=== PATIENT | female | born 1955 | race Caucasian/White ===

== ENCOUNTER 2022-12-09 06:27 | Outpatient (OUT) | payer MEDICARE, SELFPAY ==
[2022-12-09 07:44] LABS: Basophils Absolute Auto 0.1 10^3/uL (0.0-0.1); Basophils Percent Auto 1.3 % (0.2-2.0); Eosinophils Absolute Auto 0.5 10^3/uL (0.0-0.7); Eosinophils Percent Auto 6.8 % (0.9-7.0); Hematocrit 38.9 % (36.0-48.0); Hemoglobin 12.9 g/dL (12.0-16.0); Immature Granulocytes Abs Auto 0.02 10^3/uL (0.00-0.03); Immature Granulocytes Pct Auto 0.3 % (0.0-0.5); Lymphocytes Percent Auto 28.5 % (20.5-60.0); Mean Corpuscular HGB Conc 33.2 g/dL (29.9-35.2); Mean Corpuscular Hemoglobin 30.6 pg (26.7-34.0); Mean Corpuscular Volume 92.4 fL (81.0-99.0); Mean Platelet Volume 10.8 fL (9.5-13.5); Monocytes Absolute Auto 0.5 10^3/uL (0.3-0.8); Monocytes Percent Auto 6.5 % (1.7-12.0); Neutrophils Percent Auto 56.6 % (43.0-75.0); Platelet Count 309 10^3/uL (150-450); Red Blood Count 4.21 10^6/uL (4.20-5.40); Red Cell Distribution Width 12.4 % (11.0-15.0); White Blood Count 7.1 10^3/uL (4.0-11.0)
[2022-12-09 10:24] LABS: Estimated Average Glucose 111 mg/dL; Glycohemoglobin A1C 5.5 % (4.5-6.2)
[2022-12-09 11:05] LABS: Alanine Aminotransferase 36 U/L (14-59); Albumin Globulin Ratio 1.1; Albumin Level 3.8 g/dL (3.4-5.0); Alkaline Phosphatase 59 U/L (46-116); Anion Gap 15.8; Aspartate Amino Transferase 26 U/L (15-37); BUN Creatinine Ratio 27.8; Bilirubin Total 0.5 mg/dL (0.2-1.0); Calcium 9.9 mg/dL (8.5-10.1); Carbon Dioxide 22.3 mmol/L (21.0-32.0); Chloride 106 mmol/L (98-107); Chol HDL Ratio 2.3; Cholesterol 168 mg/dL (<=200); Estimated GFR (African America >60 (>=60); Estimated GFR (Non-African Ame >60 (>=60); Free T3 2.95 pg/mL (2.18-3.98); Globulin 3.4 g/dL; Glucose 127 mg/dL (74-106); HDL Cholesterol 72 mg/dL (40-60); Potassium 4.1 mmol/L (3.5-5.1); Sodium 140 mmol/L (136-145); Thyroid Stimulating Hormone 2.027 uIU/mL (0.358-3.740); Total Protein 7.2 g/dL (6.4-8.2); Triglycerides 69 mg/dL (<=150); VLDL CHOLESTEROL 13.8 mg/dL
[2022-12-09 16:15] LABS: Occult Blood Negative
== END 2022-12-09 06:28 ==
LOC: LAB 06:36
PROVIDERS: PCP Family Medicine; Visit Provider Family Medicine
DX: Z00.00 Encounter for general adult medical examination without abnormal findings (principal); D64.9 Anemia, unspecified; R53.83 Other fatigue; R73.09 Other abnormal glucose; I10 Essential (primary) hypertension; E78.5 Hyperlipidemia, unspecified; Z12.12 Encounter for screening for malignant neoplasm of rectum
CPT/HCPCS: 36415; 80053; 80061; 83036; 83540; 84436; 84443; 84481; 85025; G0328

== ENCOUNTER 2023-01-10 13:13 | Outpatient (OUT) | payer MEDICARE, SELFPAY ==
--- NOTE | 2023-01-10 13:22 | MM_ITS ---
Patient: ISRRAEL LAZCANO Exam Date: 01/10/2023 : 1955 Gender:F Ordering : DR Shaggy Cheng . Admission #: [id number] Family : Order #: [id number] CLICK HERE TO VIEW EXAM RADIOLOGY REPORT PROCEDURE: MM TOMOSYNTHESIS SCREENING BI COMPARISON: MG MAMM SCREEN 3D [place] CAD, 11/24/2021. MG MAMM SCREEN 3D [place] CAD, 09/21/2020. MG MAMM SCREEN B[place] W CAD, 07/12/2019. MG MAMM B[place]NA[place] SCRN W CAD DIG, 12/04/2013. INDICATIONS: Screening Calculator Name NCI Breast Cancer Risk Assessment Tool 5 Year Breast Cancer Risk 5.00% Lifetime Breast Cancer Risk 15.50% Personal Breast Cancer No Personal Ovarian Cancer No Treatments None Family Cancers Mother with breast cancer at age 80; Sister with leioma, brain cancer at age 33. LOCATION: [facility] BREAST COMPOSITION: Scattered areas fibroglandular density. FINDINGS: DIAGNOSTIC CATEGORY 2--BENIGN FINDING: RIGHT BREAST: No significant suspicious finding. Scattered benign-appearing calcifications are present. No significant change has occurred. LEFT BREAST: No significant suspicious finding. Scattered benign-appearing calcifications are present. No significant change has occurred. RECOMMENDATIONS: ROUTINE MAMMOGRAM AND CLINICAL EVALUATION IN 12 MONTHS. PLEASE NOTE: A NORMAL MAMMOGRAM DOES NOT EXCLUDE THE POSSIBILITY OF BREAST CANCER. A CLINICALLY SUSPICIOUS PALPABLE LUMP SHOULD BE BIOPSIED. Dictated by: John Coffey M.D. on 01/11/2023 at 12:54 Approved by: John Coffey M.D. on 01/11/2023 at 12:59
== END 2023-01-10 13:14 | disposition home or self-care (01) ==
PROVIDERS: PCP Family Medicine; Visit Provider Family Medicine
DX: Z12.31 Encounter for screening mammogram for malignant neoplasm of breast (principal); Z80.3 Family history of malignant neoplasm of breast; Z80.8 Family history of malignant neoplasm of other organs or systems
CPT/HCPCS: 77063; 77067

== ENCOUNTER 2023-03-04 08:20 | Emergency (ER) | payer MEDICARE, SELFPAY ==
--- NOTE | 2023-03-04 08:28 | XR_ITS ---
The [address] [address] Patient Name: ISRRAEL LAZCANO MRN: [id number] date: 1955 Sex: F Assigned Patient Location: ED.MAIN Current Patient Location: ED.MAIN Accession/Order Number: [id number] Exam Date: 03/04/2023 08:40 Report Date: 03/04/2023 09:20 At the request of: ELIZABETH SESAY Procedure: XR wrist RT min 3V PROCEDURE: XR wrist RT min 3V COMPARISON: None. HISTORY: injury FINDINGS: BONES:Acute complex intra-articular distal radius fracture.r there is dorsal lateral displacement of the distal fracture fragments up to 8 mm. No dislocation. SOFT TISSUES:Negative. No visible soft tissue swelling. EFFUSION:None visible. OTHER: Negative. XR/XR wrist RT min 3V IMPRESSION: Complex intra-articular distal radius fracture with dorsal lateral displacement of the distal fracture fragments Electronically authenticated by: ELISSA ROSE Date: 03/04/2023 09:20
[2023-03-04 08:29] VITALS: BP 128/70; PULSE 76; RESP 18; TEMP 36.7; O2SAT 97; BMI 26.5
--- NOTE | 2023-03-04 08:56 | ED_ITS ---
HPI - Extremity Injury (Upper) General Chief Complaint: Extremity Injury, Upper Stated Complaint: FELL, THINKS R HAND/WRIST IS BROKEN Time Seen by Provider: 03/04/23 08:24 Mode of arrival: walk-in History of Present Illness HPI narrative: tripped while walking her dog, fell and injured the right wrist Related Data Previous Rx's Medication Instructions Recorded oxycodone-acetaminophen 5 mg-325 1 tab PO Q6H PRN pain #14 tabs 03/04/23 mg tablet (Percocet) Allergies Allergy/AdvReac Type Severity Reaction Status Date / Time No Known Drug Allergies Allergy Verified 03/04/23 08:28 Exam Narrative Exam Narrative: Nurses note and vital signs reviewed and patient is not hypoxic. afebrile General: The patient appears well and in no apparent distress. Patient is resting comfortably on cart. GCS = 15. Skin: Warm, dry, no pallor noted. Head: Normocephalic, atraumatic Eyes: PERRLA, EOMI Cardiovascular: normal peripheral perfusion Respiratory: Patient is in no distress, no accessory muscle use Musculoskeletal: tenderness and swelling at the distal right radius. Pain with right wrist ROM Neurological: A&O x4, normal equal spout positioner strength, normal finger to nose, normal speech, normal coordination, normal motor, normal sensory. Psychiatric: Cooperative Constitutional Vital Signs, click to edit/add: Last Vital Signs Temp 98.0 F 03/04/23 08:29 Pulse 76 03/04/23 08:29 Resp 18 03/04/23 08:29 BP 128/70 03/04/23 08:29 Pulse Ox 97 03/04/23 08:29 O2 Del Method Room Air 03/04/23 08:29 Course Vital Signs Vital signs: Vital Signs Temperature 98.0 F 03/04/23 08:29 Pulse Rate 76 03/04/23 08:29 Respiratory Rate 18 03/04/23 08:29 Blood Pressure 128/70 03/04/23 08:29 Pulse Oximetry 97 03/04/23 08:29 Oxygen Delivery Method Room Air 03/04/23 08:29 Temperature 98.0 F 03/04/23 08:29 Pulse Rate 76 03/04/23 08:29 Respiratory Rate 18 03/04/23 08:29 Blood Pressure 128/70 03/04/23 08:29 Pulse Oximetry 97 03/04/23 08:29 Oxygen Delivery Method Room Air 03/04/23 08:29 MDM - Extremity Injury (Upper) MDM Narrative Medical decision making narrative: patient with distal right radius fracture. ED nurse applied a velcro adjustable splint to the right hand and wrist. Patient instructed to see Dr Abdi for follow up Imaging Data xr wrist: My impression: closed distal right radius fracture Radiologist's impression: Patient Name: ISRRAEL LAZCANO MRN: [facility]:[id number] date: 1955 Sex: F Assigned Patient Location: ED.MAIN Current Patient Location: ED.MAIN Accession/Order Number: [id number] Exam Date: 03/04/2023 08:40 Report Date: 03/04/2023 09:20 At the request of: ELIZABETH SESAY Procedure: XR wrist RT min 3V PROCEDURE: XR wrist RT min 3V COMPARISON: None. HISTORY: injury FINDINGS: BONES:Acute complex intra-articular distal radius fracture.r there is dorsal lateral displacement of the distal fracture fragments up to 8 mm. No dislocation. SOFT TISSUES:Negative. No visible soft tissue swelling. EFFUSION:None visible. OTHER: Negative. IMPRESSION: Complex intra-articular distal radius fracture with dorsal lateral displacement of the distal fracture fragments Electronically authenticated by: ELISSA ROSE Date: 03/04/2023 09:20 Discharge Plan Discharge Chief Complaint: Extremity Injury, Upper Clinical Impression: Distal radius fracture, right Patient Disposition: Home, Self-Care Time of Disposition Decision: 08:55 Prescriptions / Home Meds: New oxycodone-acetaminophen [Percocet] 5-325 mg tablet 1 tab PO Q6H PRN (Reason: pain) Qty: 14 0RF Instructions: Wrist Fracture in Adults (ED) Stand Alone Forms: Portal Instructions Referrals: John Abdi MD [Physician] - 03/07/23 Discharge Date/Time: 03/04/23 09:32
== END 2023-03-04 09:32 | disposition home or self-care (01) ==
PROVIDERS: Emergency Provider Emergency Medicine; PCP Family Medicine
DX: S52.501A Unspecified fracture of the lower end of right radius, initial encounter for closed fracture (principal); W01.0XXA Fall on same level from slipping, tripping and stumbling without subsequent striking against object, initial encounter; Y93.K1 Activity, walking an animal
CPT/HCPCS: 73110; 99283

== ENCOUNTER 2023-03-09 10:01 | Outpatient (OUT) | payer MEDICARE, SELFPAY ==
--- NOTE | 2023-03-09 10:24 | ECG_ITS ---
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
[2023-03-09 11:28] LABS: Basophils Absolute Auto 0.1 10^3/uL (0.0-0.1); Basophils Percent Auto 0.9 % (0.2-2.0); Eosinophils Absolute Auto 0.3 10^3/uL (0.0-0.7); Eosinophils Percent Auto 2.6 % (0.9-7.0); Hematocrit 36.8 % (36.0-48.0); Hemoglobin 12.1 g/dL (12.0-16.0); Immature Granulocytes Abs Auto 0.04 10^3/uL (0.00-0.03); Immature Granulocytes Pct Auto 0.4 % (0.0-0.5); Lymphocytes Absolute Auto 1.8 10^3/uL (1.2-3.8); Lymphocytes Percent Auto 19.1 % (20.5-60.0); Mean Corpuscular HGB Conc 32.9 g/dL (29.9-35.2); Mean Corpuscular Hemoglobin 30.8 pg (26.7-34.0); Mean Corpuscular Volume 93.6 fL (81.0-99.0); Mean Platelet Volume 10.3 fL (9.5-13.5); Monocytes Absolute Auto 0.5 10^3/uL (0.3-0.8); Monocytes Percent Auto 5.5 % (1.7-12.0); Neutrophils Absolute Auto 6.8 10^3/uL (1.4-6.5); Neutrophils Percent Auto 71.5 % (43.0-75.0); Platelet Count 345 10^3/uL (150-450); Red Blood Count 3.93 10^6/uL (4.20-5.40); Red Cell Distribution Width 11.9 % (11.0-15.0); White Blood Count 9.5 10^3/uL (4.0-11.0)
[2023-03-09 11:52] LABS: Anion Gap 10.9; BUN Creatinine Ratio 18.5; Calcium 9.4 mg/dL (8.5-10.1); Carbon Dioxide 26.2 mmol/L (21.0-32.0); Chloride 108 mmol/L (98-107); Estimated GFR (African America >60 (>=60); Estimated GFR (Non-African Ame >60 (>=60); Glucose 92 mg/dL (74-106); Potassium 4.1 mmol/L (3.5-5.1); Sodium 141 mmol/L (136-145)
[2023-03-09 12:08] LABS: Alanine Aminotransferase 23 U/L (14-59); Albumin Globulin Ratio 1.1; Albumin Level 3.6 g/dL (3.4-5.0); Alkaline Phosphatase 56 U/L (46-116); Aspartate Amino Transferase 17 U/L (15-37); Bilirubin Direct 0.1 mg/dL (0.0-0.2); Bilirubin Total 0.4 mg/dL (0.2-1.0); Globulin 3.4 g/dL
[2023-03-09 12:09] LABS: INR 0.97; Partial Thromboplastin Time 29.2 sec (22.3-36.2); Prothrombin Time 10.3 sec (9.0-11.6)
== END 2023-03-09 10:02 | disposition home or self-care (01) ==
PROVIDERS: PCP Family Medicine; Visit Provider Orthopaedic Surgery
DX: Z01.810 Encounter for preprocedural cardiovascular examination (principal); Z01.812 Encounter for preprocedural laboratory examination; S52.501A Unspecified fracture of the lower end of right radius, initial encounter for closed fracture
CPT/HCPCS: 36415; 80048; 80076; 85025; 85610; 85730; 93005

== ENCOUNTER 2023-03-13 11:26 | Day surgery (SDC) | payer MEDICARE, SELFPAY ==
[2023-03-09 10:47] VITALS: BP 141/81; PULSE 61; RESP 20; TEMP 36.4; O2SAT 96; BMI 26.0
[2023-03-13] VITALS (9 sets, daily range): BP systolic 135–154; BP diastolic 71–87; PULSE 65–102; RESP 15–20; TEMP 36.4; O2SAT 87–97; BMI 25.0
--- NOTE | 2023-03-13 | XR_ITS ---
[address] [address] Patient Name: ISRRAEL LAZCANO MRN: [id number] date: 1955 Sex: F Assigned Patient Location: [facility] Current Patient Location: Accession/Order Number: [id number] Exam Date: 03/13/2023 15:20 Report Date: 03/14/2023 07:14 At the request of: MAKI HOOKS Procedure: XR wrist RT 2V EXAM: XR wrist RT 2V HISTORY: RT WRIST ORIF COMPARISON: 03/04/2023 TECHNIQUE: 3-D images. 104 seconds of fluoroscopy FINDINGS: Open reduction internal fixation of a complex distal radius fracture utilizing a volar plate and multiple screws. Near anatomic alignment. XR/XR wrist RT 2V IMPRESSION: Open reduction internal fixation of the distal radius fracture Electronically authenticated by: ELISSA ROSE Date: 03/14/2023 07:14
--- NOTE | 2023-03-13 12:48 | PC.NURSE ---
[address] Time out performed with Dr. Gallardo, the patient and Myself. Checked against the Wrist band and stickers as well as patient. Dr. Gallardo administered 2mg of versed following Time out. Patient positioned per anesthesia. Right arm was marked prior to initiation of procedure. Using ultrasound guidance Dr. Gallardo initiated nerve block in right shoulder. Patient tolerated procedure well. Patient sitting in an upright high fowlers position, awake, alert and oriented x4. Patient stated no further needs at this time.
[2023-03-13] MEDS: LACTATED RINGER'S SOLUTION 1,000 ML 50 ML IV ×2 (14:37→15:40)
[2023-03-13] MEDS: CEFAZOLIN SODIUM/DEXTROSE,ISO 2 GM/50 ML PIGGYBACK IV (14:38)
--- NOTE | 2023-03-13 16:50 | P.ORPRC_ITS ---
Procedure Note Date of procedure: 03/13/23 Pre-op diagnosis: Right distal radius fracture Post-op diagnosis: other (Three-part intra-articular right distal radius fracture) Procedure: Procedure: Open reduction internal fixation right distal radius fracture After informed consent was obtained the patient brought to the operating room where general anesthetic was administered. Preoperatively a regional block was placed. A well-padded proximal arm tourniquet was placed on the right arm was prepped and draped in the usual sterile fashion. The arm was elevated, exsanguinated, and the tourniquet was inflated to 225 mmHg. A 6 cm incision was made overlying the flexor carpi radialis tendon at the distal radius fracture. Blunt dissection was carried down through soft tissue. Flexor carpi radialis was retracted ulnarly along with the FPL muscle and tendon. The underlying pronator quadratus was identified and incised in an L- shaped fashion off of the bone. The fracture was identified and found to be significantly displaced posteriorly and one fracture going into the joint. Using traction and manipulation reduction was performed. The Synthes by column distal radius 3-hole plate was next placed and provisionally held into place with K wires. X-rays revealed a reduced distal radius fracture and appropriate implant placement. The plate was first fixed to the shaft fragment through the oblong drill hole in the standard fashion of drilling the hole, measuring and then placement of a 2.7 bicortical nonlocking screw. While holding the reduction 6 unicortical 2.4 mm locking screws were placed at the distal fracture fragments. An additional 2 bicortical 2.[address] through the shaft fragment. Final x-rays in multiple planes revealed a reduced distal radius fracture with appropriate implant placement and lengths. Wound was irrigated. Pronator quadratus was repaired with an 0 Vicryl suture. Skin was closed in standard fashion with absorbable suture. Steri-Strips and a sterile dressing was placed. A volar fiberglass splint was placed. Tourniquet was deflated. Patient was awakened and brought to the recovery room in stable condition. There were no intraoperative or immediate postoperative complications.
== END 2023-03-13 17:55 | disposition home or self-care (01) ==
PROVIDERS: PCP Family Medicine; Visit Provider Orthopaedic Surgery
PROC: (CPT 25609; principal; 2023-03-13 12:50)
DX: S52.571A Other intraarticular fracture of lower end of right radius, initial encounter for closed fracture (principal); W19.XXXA Unspecified fall, initial encounter
CPT/HCPCS: 25609; 36415; 64417; 73100; 76000; 76942; C1713; J2704

== ENCOUNTER 2023-03-27 07:58 | Outpatient (OUT) | payer MEDICARE, SELFPAY ==
--- NOTE | 2023-03-27 08:00 | XR_ITS ---
The [address] [address] Patient Name: ISRRAEL LAZCANO MRN: [id number] date: 1955 Sex: F Assigned Patient Location: [facility] Current Patient Location: [facility] Accession/Order Number: [id number] Exam Date: 03/27/2023 08:05 Report Date: 03/27/2023 08:57 At the request of: MAKI HOOKS Procedure: XR wrist RT min 3V EXAM: XR wrist RT min 3V HISTORY: Closed Fracture Of Distal End Of Right Radius S52.591A COMPARISON: Fluoroscopic exam 03/13/2023 TECHNIQUE: 3 views of the right wrist FINDINGS: Partial interval healing of the intra-articular distal radial fracture in unchanged alignment; orthopedic fixation hardware appears intact. No acute fracture identified. No dislocation. Soft tissue swelling about the wrist XR/XR wrist RT min 3V IMPRESSION: 1. Partial interval healing of the distal radial fracture in unchanged alignment; orthopedic fixation hardware appears intact. Electronically authenticated by: JOESPH KING Date: 03/27/2023 08:57
== END 2023-03-27 07:59 | disposition home or self-care (01) ==
LOC: RAD 07:58
PROVIDERS: PCP Family Medicine; Visit Provider Orthopaedic Surgery
DX: S52.591A Other fractures of lower end of right radius, initial encounter for closed fracture (principal)
CPT/HCPCS: 73110

== ENCOUNTER 2023-03-29 07:55 | Outpatient (RCR) | payer MEDICARE, SELFPAY | END 2023-05-19 15:11 | disposition home or self-care (01) | LOC: OT 07:55 | PROVIDERS: PCP Family Medicine; Visit Provider Orthopaedic Surgery | DX: S52.591D Other fractures of lower end of right radius, subsequent encounter for closed fracture with routine healing (principal) | CPT/HCPCS: 97022; 97110; 97140; 97165 ==

== ENCOUNTER 2023-04-24 08:14 | Outpatient (OUT) | payer MEDICARE, SELFPAY ==
--- NOTE | 2023-04-24 | XR_ITS ---
The [address] [address] Patient Name: ISRRAEL LAZCANO MRN: [id number] date: 1955 Sex: F Assigned Patient Location: [facility] Current Patient Location: [facility] Accession/Order Number: [id number] Exam Date: 04/24/2023 08:45 Report Date: 04/24/2023 12:51 At the request of: MAKI HOOKS Procedure: XR wrist RT min 3V PROCEDURE: XR wrist RT min 3V HISTORY: Closed fracture of distal end of right radius COMPARISON: XR wrist right 03/27/2023 FINDINGS: BONES:Mechanical repair of distal radius fracture via anterior plate and screws; no appreciable hardware fracture or loosening. Mild callus formation along margins of prior fracture. Mild degenerative changes of the wrists joints; no acute fracture. SOFT TISSUES:Soft tissue swelling surrounding the wrist. EFFUSION:None visible. OTHER: Negative. XR/XR wrist RT min 3V IMPRESSION: 1. Surgical repair of prior distal left radius fracture without evidence of hardware failure or change in alignment. 2. Soft tissue swelling. Electronically authenticated by: MAKI MENDOZA Date: 04/24/2023 12:51
== END 2023-04-24 08:15 | disposition home or self-care (01) ==
LOC: RAD 08:14
PROVIDERS: PCP Family Medicine; Visit Provider Orthopaedic Surgery
DX: S52.591A Other fractures of lower end of right radius, initial encounter for closed fracture (principal)
CPT/HCPCS: 73110

== ENCOUNTER 2024-02-09 06:23 | Outpatient (OUT) | payer MEDICARE, SELFPAY ==
--- OUTSIDE RECORDS SUMMARY | 2024-02-09 06:27 | XMS_ITS | CCD ---
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 Name Role Phone ED LIUJassonROGER Jacqueline Referring Unavailable Unavailable Primary Care Provider Unavailizaiah e GAIL, DR DAMIAN Primary Care Unavailable HOY, DR DAMIAN Admitting Unavailable HOY, DR DAMIAN Attending Unavailable HOY, DR DAMIAN Consulting Unavailable HOY, DR DAMIAN Consulting Unavailable HOY, DR DAMIAN Primary Care Unavailable HOY, DR DAMIAN Admitting Unavailable HOY, DR DAMIAN Attending Unavailable HOY, DR DAMIAN Consulting Unavailable HOY, DR DAMIAN Primary Care Unavailable HOY, DR DAMIAN Admitting Unavailable HOY, DR DAMIAN Attending Unavailable HOY, DR DAMIAN Consulting Unavailable HOY, DR DAMIAN Primary Care Unavailable HOY, DR DAMIAN Admitting Unavailable HOY, DR DAMIAN Attending Unavailable HOY, DR DAMIAN Consulting Unavailable HOY, DR DAMIAN Primary Care Unavailable HOY, DR DAMIAN Admitting Unavailable HOY, DR DAMIAN Attending Unavailable WEST, DR ELISSA Jameson Consulting Unavailable Problems Active Problems Problem Classification Problem Date Documented Da te Episodic/Chronic Acute bronchitis (1 source) Acute bronchitis, unspecified; Translations: [ACUTE BRONCHITIS UNSPECIFIED] Onset: 06-30-2022 Episodic Chronic obstructive pulmonary disease and bronchiectasis (5 sources) Chronic obstructive pulmonary disease, unspecified; Translations: [COPD UNSPECIFIED] Onset: 11-19-2021 Chronic Disorders of lipid metabolism (1 source) Hyperlipidemia, unspecified; Translations: [HYPERLIPIDEMIA UNSPECIFIED] Onset: 11-26-2021 Chronic Essential hypertension (1 source) Essential (primary) hypertension; Translations: [ESSENTIAL PRIMARY HYPERTENSION] Onset: 11-26-2021 Chronic Unclassified (3 sources) CONTACT W/AND (SUSP) EXPOS COVID-19; Translations: [CONTACT W/AND (SUSP) EXPOS COVID-19] Onset: 06-30-2022 Unclassified (2 sources) COUGH, UNSPECIFIED; Translations: [COUGH, UNSPECIFIED] Onset: 03-30-2022 Viral infection (1 source) COVID-19; Translations: [COVID-19] Onset: 03-30-2022 Past or Other Problems Problem Classification Problem Date Documented Da te Episodic/Chronic Deficiency and other anemia (1 source) Anemia, unspecified; Translations: [ANEMIA UNSPECIFIED] Onset: 11-26-2021 Episodic Diabetes mellitus without complication (1 source) Other abnormal glucose; Translations: [OTHER ABNORMAL GLUCOSE] Onset: 11-26-2021 Episodic Hepatitis (1 source) Unspecified viral hepatitis C without hepatic coma; Translations: [UNS VIRAL HEPATITIS C W/O HEP COMA] Onset: 11-26-2021 Episodic Other screening for suspected conditions (not mental disorders or infectious disease) (3 sources) Viral screening status; Translations: [Encounter for screening mammogram for malignant neoplasm of breast] Onset: 11-26-2021 Episodic Residual codes; unclassified (1 source) Family history of malignant neoplasm of breast; Translations: [FAMILY HX MALIG NEOPLASM OF BREAST] Onset: 11-26-2021 Episodic Residual codes; unclassified (1 source) Family history of malignant neoplasm of other organs or systems; Translations: [FAM HX MALIG NEOPLASM OTH ORGN/SYS] Onset: 11-26-2021 Episodic Unclassified (1 source) CONTACT W/AND (SUSP) EXPOS COVID-19; Translations: [CONTACT W/AND (SUSP) EXPOS COVID-19] Onset: 06-23-2022 Unclassified (1 source) COUGH, UNSPECIFIED; Translations: [COUGH, UNSPECIFIED] Onset: 03-28-2022 Results Test Name Value Interpretation Reference Range Facility Covid-19 PCR (CVDTBH)on 06-03 SARS-CoV-2 (COVID-19) RNA ROSALINA+probe Ql (Unsp spec) Not detected Normal NOT DETECTED [facility] [place] Comment on above: Result Comment: This test is not yet approved or cleared by the [place] FDA. When there are no FDA-approved or cleared tests available, and other criteria are met, FDA can make tests available under an emergency access mechanism called an Emergency Use Authorization (EUA). The EUA for this test is supported by the [place] of Health and Human Service's (HHS's) declaration that circumstances exist to justify the emergency use of in vitro diagnostics for the detection and/or diagnosis of the virus that causes COVID-19. This EUA will remain in effect (meaning this test can be used) for the duration of the COVID-19 declaration justifying emergency of IVDs, unless it is terminated or revoked by FDA (after which the test may no longer be used). When diagnostic testing is negative, the possibility of a false negative should be considered in the context of a patient's recent exposures and the presence of clinical signs and symptoms consistent with SARS-CoV-2. Performed By: #### C VDTB #### [facility] [place] Laboratory [address] [place] [address] Dr. Perico Victor INFLUENZA A AND B [facility] 06-23 [facility] SEE BELOW Normal [facility] Comment on above: Result Comment: Nega tive for Flu A protein angiten. Infection due to Flu A cannot be ruled out. Flu A angiten in the sample may be below the detection limit of the test. Performed By: #### I NFLUAB #### [facility] [place] Laboratory [address] [place] [address] Dr. Perico Victor [facility] SEE BELOW Normal [facility] Comment on above: Result Comment: Nega tive for Flu B protein antigen. Infection due to Flu B cannot be ruled out. Flu B antigen in the sample may be below the detection limit of the test. Performed By: #### I NFLUAB #### [facility] [place] Laboratory [address] [place] [address] Dr. Perico Victor INFLUENZA A AG Negative Normal NEGATIVE SEE COMMENT [facility] Comment on above: Performed By: #### I NFLUAB #### [facility] [place] Laboratory [address] [place] [address] Dr. Perico Victor INFLUENZA B AG Negative Normal NEGATIVE SEE COMMENT [facility] Comment on above: Performed By: #### I NFLUAB #### [facility] [place] Laboratory [address] [place] [address] Dr. Perico Victor INTERNAL CONTROLS Within Normal Limits Normal Wi thin Normal Limits [facility] [place] Comment on above: Performed By: #### I NFLUAB #### [facility] [place] Laboratory [address] [place] [address] Dr. Perico Victor Covid-19 PCR (CVDTB)on 03-04 SARS-CoV-2 (COVID-19) RNA ROSALINA+probe Ql (Unsp spec) Detected Critically abnormal NOT DETECTED [facility] [place] Comment on above: Result Comment: This test is not yet approved or cleared by the [place] FDA. When there are no FDA-approved or cleared tests available, and other criteria are met, FDA can make tests available under an emergency access mechanism called an Emergency Use Authorization (EUA). The EUA for this test is supported by the [place] of Health and Human Service's (HHS's) declaration that circumstances exist to justify the emergency use of in vitro diagnostics for the detection and/or diagnosis of the virus that causes COVID-19. This EUA will remain in effect (meaning this test can be used) for the duration of the COVID-19 declaration justifying emergency of IVDs, unless it is terminated or revoked by FDA (after which the test may no longer be used). Performed By: #### C VDTB #### [facility] [place] Laboratory [address] [address] [address] Perico Victor Covid-19 PCR (CVDTB)on 02-02 SARS-CoV-2 (COVID-19) RNA ROSALINA+probe Ql (Unsp spec) Not detected Normal NOT DETECTED [facility] [place] Comment on above: Result Comment: This test is not yet approved or cleared by the [place] FDA. When there are no FDA-approved or cleared tests available, and other criteria are met, FDA can make tests available under an emergency access mechanism called an Emergency Use Authorization (EUA). The EUA for this test is supported by the [place] of Health and Human Service's (HHS's) declaration that circumstances exist to justify the emergency use of in vitro diagnostics for the detection and/or diagnosis of the virus that causes COVID-19. This EUA will remain in effect (meaning this test can be used) for the duration of the COVID-19 declaration justifying emergency of IVDs, unless it is terminated or revoked by FDA (after which the test may no longer be used). When diagnostic testing is negative, the possibility of a false negative should be considered in the context of a patient's recent exposures and the presence of clinical signs and symptoms consistent with SARS-CoV-2. Performed By: #### C VDTBH #### [facility] [place] Laboratory [address] [place] [address] Dr. Perico Victor T4 LABCORPon 11-26-2021 T4 [Mass/Vol] 9.2 ug/dL Normal 4.5-12.[address] [facility] Comment on above: Performed By: #### T 4LC #### [facility] [place] Laboratory [address] [place] [address] Dr. Perico Victor INSULINon 11-25-2021 Insulin 14.4 uIU/mL Normal 2.6-24.9 [facility] [place] Comment on above: Performed By: #### I NSULIN #### [facility] [place] Laboratory [address] [place] [address] Dr. Perico Victor CBC AUTO DIFFon 11-24-2021 BASO # 0.1 103/ul Normal 0.0-0.1 [facility] Comment on above: Performed By: #### C BC #### [facility] [place] Laboratory [address] [place] [address] Dr. Perico Victor Basophils/100 WBC (Bld) 1.2 % Normal 0.2-2.0 [facility] [place] Comment on above: Performed By: #### C BC #### [facility] [place] [facility] [address] [place] [address] Dr. Perico Victor EO # 0.5 103/ul Normal 0.0-0.7 [facility] [place] Comment on above: Performed By: #### C BC #### [facility] [place] [facility] [address] [place] [address] Dr. Perico Victor Eosinophils/100 WBC (Bld) 5.8 % Normal 0.9-7.0 [facility] [place] Comment on above: Performed By: #### C BC #### [facility] [place] [facility] [address] [place] [address] Dr. Perico Victor Erythrocyte distribution width (RBC) [Ratio] 12.3 % Normal 11.0-15.0 [facility] Comment on above: Performed By: #### C BC #### [facility] [place] [facility] [address] [place] [address] Dr. Perico Victor Hematocrit (Bld) [Volume fraction] 41.7 % Normal 36.0-48.0 [facility] Comment on above: Performed By: #### C BC #### [facility] [place] [facility] [address] [place] [address] Dr. Perico Victor Hemoglobin (Bld) [Mass/Vol] 13.6 g/dL Normal 12.0-16.0 [facility] Comment on above: Performed By: #### C BC #### [facility] [place] [facility] [address] [place] [address] Dr. Perico Victor IG # 0.03 10e3/ul Normal 0.00-0.03 [facility] Comment on above: Performed By: #### C BC #### [facility] [place] [facility] [address] [place] [address] Dr. Perico Victor IG % 0.3 % Normal 0.0-0.5 [facility] Comment on above: Performed By: #### C BC #### [facility] [place] [facility] [address] [place] [address] Dr. Perico Victor LYMPH # 2.8 103/ul Normal 1.2-3.8 [facility] Comment on above: Performed By: #### C BC #### [facility] [place] [facility] [address] [place] [address] Dr. Perico Victor Lymphocytes/100 WBC (Bld) 30.5 % Normal 20.5-60.0 [facility] Comment on above: Performed By: #### C BC #### [facility] [place] [facility] [address] [place] [address] Dr. Perico Victor MANUAL DIFF REQ NO Normal [facility] Comment on above: Performed By: #### C BC #### [facility] [place] [facility] [address] [place] [address] Dr. Perico Victor MCH (RBC) [Entitic mass] 30.6 pg Normal 26.7-34.0 [facility] Comment on above: Performed By: #### C BC #### [facility] [place] [facility] [address] [place] [address] Dr. Perico Victor MCHC (RBC) [Mass/Vol] 32.6 g/dL Normal 29.9-35.2 [facility] [place] Comment on above: Performed By: #### C BC #### [facility] [place] [facility] [address] [place] [address] Dr. Perico Victor MCV (RBC) [Entitic vol] 93.7 fL Normal 81.0-99.0 [facility] Comment on above: Performed By: #### C BC #### [facility] [place] [facility] [address] [place] [address] Dr. Perico Victor MONO # 0.6 103/ul Normal 0.3-0.8 [facility] [place] Comment on above: Performed By: #### C BC #### [facility] [place] [facility] [address] [place] [address] Dr. Perico Victor Monocytes/100 WBC (Bld) 6.6 % Normal 1.7-12.0 [facility] Comment on above: Performed By: #### C BC #### [facility] [place] [facility] [address] [place] [address] Dr. Perico Victor NEUT # 5.0 103/ul Normal 1.4-6.5 [facility] Comment on above: Performed By: #### C BC #### [facility] [place] [facility] [address] [place] [address] Dr. Perico Victor Neutrophils/100 WBC (Bld) 55.6 % Normal 43.0-75.0 [facility] [place] Comment on above: Performed By: #### C BC #### [facility] [place] [facility] [address] [place] [address] Dr. Perico Victor Platelet mean volume (Bld) [Entitic vol] 11.2 fL Normal 9.5-13.5 [facility] [place] Comment on above: Performed By: #### C BC #### [facility] [place] [facility] [address] [place] [address] Dr. Perico Victor PLT 324 103/ul Normal 150-450 [facility] [place] Comment on above: Performed By: #### C BC #### [facility] [place] [facility] [address] [place] [address] Dr. Perico Victor RBC 4.45 106/ul Normal 4.20-5.40 [facility] Comment on above: Performed By: #### C BC #### [facility] [place] [facility] [address] [place] [address] Dr. Perico Victor WBC 9.0 103/ul Normal 4.0-11.0 [facility] Comment on above: Performed By: #### C BC #### [facility] [place] [facility] [address] [place] [address] Dr. Perico Victor FREE THYROXINE INDEX T7on FTI 2.94 Normal 1.30-4.50 [facility] Comment on above: Performed By: #### A 1C #### [facility] [place] [facility] [address] [place] [address] Dr. Perico Victor T3U 32.0 % Normal 30.0-39.0 [facility] Comment on above: Performed By: #### A 1C #### [facility] [place] [facility] [address] [place] [address] Dr. Perico Victor T4 [Mass/Vol] 9.20 ug/dL Normal 4.80-13.90 [facility] Comment on above: Performed By: #### A 1C #### [facility] [place] [facility] [address] [place] [address] Dr. Perico Victor GLYCOHEMOGLOBIN A1Con 2021 ADA RECOMMENDATION SEE BELOW Normal [facility] Comment on above: Result Comment: ADA RECOMMENDED LIMIT 4.0 - 6.0 ADA THERAPEUTIC TARGET < 7.0 ACTION SUGGESTED > 7.0 Performed By: #### A 1C #### [facility] [place] [facility] [address] [place] [address] Dr. Perico Victor Glucose [Mass/Vol] 114 mg/dL Normal [facility] Comment on above: Performed By: #### A 1C #### [facility] [facility] [address] [place] [address] Dr. Perico Victor HbA1c (Bld) [Mass fraction] 5.6 % Normal 4.5-6.2 [facility] Comment on above: Performed By: #### A 1C #### [facility] [place] [facility] [address] [place] [address] Dr. Perico Victor IRONon 11-24-2021 Iron [Mass/Vol] 75.0 ug/dL Normal 50.0-170.0 [facility] Comment on above: Performed By: #### I SULEIMAN #### [facility] [place] [facility] [address] [address] [address] Perico Victor LIPID PROFILEon 11-24-2021 CHOL-HDL RATIO NORM SEE BELOW Normal [facility] Comment on above: Result Comment: 3.3 - 4.4 LOW RISK 4.4 - 7.1 AVERAGE RISK 7.1 - 11.0 MODERATE RISK >11.0 HIGH RISK Performed By: #### A 1C #### [facility] [place] [facility] [address] [address] [address] Perico Victor Cholesterol [Mass/Vol] 171 mg/dL Normal <=200 [facility] Comment on above: Performed By: #### A 1C #### [facility] [place] [facility] [address] [address] [address] Perico Victor Cholesterol in HDL [Mass/Vol] 68 mg/dL Critically high 40-60 [facility] Comment on above: Performed By: #### A 1C #### [facility] [place] [facility] [address] [address] [address] Perico Victor Cholesterol in LDL [Mass/Vol] 89.6 mg/dL Normal [facility] Comment on above: Performed By: #### A 1C #### [facility] [place] [facility] [address] [address] [address] Perico Victor Cholesterol.total/Ch olesterol in HDL [Mass ratio] 2.5 {ratio} Normal [facility] Comment on above: Performed By: #### A 1C #### [facility] [place] [facility] [address] [address] [address] Perico Victor HDL NORMAL > or = 60 mg/dl - LOW CARDIOVASCULAR RISK <40 mg/dl - HIGH CARDIOVASCULAR RISK Normal [facility] Comment on above: Performed By: #### A 1C #### [facility] [place] [facility] [address] [address] [address] Perico Victor LDL CALC NORMAL SEE BELOW Normal [facility] Comment on above: Result Comment: <100 mg/dl OPTIMAL 100 - 129 mg/dl NEAR OR ABOVE OPTIMAL 130 - 159 mg/dl BORDERLINE HIGH 160 - 189 mg/dl HIGH >190 mg/dl VERY HIGH Performed By: #### A 1C #### [facility] [facility] [address] [place] [address] Dr. Perico Victor Triglyceride [Mass/Vol] 67 mg/dL Normal <=150 [facility] Comment on above: Performed By: #### A 1C #### [facility] [place] [facility] [address] [address] [address] Perico Victor VLDL CALC 13.4 mg/dL Normal [facility] Comment on above: Performed By: #### A 1C #### [facility] [place] [facility] [address] [place] [address] Dr. Perico Victor MG MAMM SCREEN 3D BERNADETTE CADon 11-24-2021 MG MAMM SCREEN 3D BERNADETTE CAD Patient: ISRRAEL LAZCANO Exam Date: 11/24/2021 : 1955 Gender:F Ordering : DR RICKIE REYNOLDS . Admission #: [id number] Family : Order #: [id number] CLICK HERE TO VIEW EXAM RADIOLOGY REPORT PROCEDURE: MAMMOGRAM SCREENING 3D BILATERAL CAD COMPARISON: MG MAMM SCREEN BERNADETTE W CAD, 07/12/2019. MG MAMM SCREEN 3D BERNADETTE CAD, 09/21/2020. INDICATIONS: Screening mammography Calculator Name NCI Breast Cancer Risk Assessment Tool 5 Year Breast Cancer Risk 5.00% Lifetime Breast Cancer Risk 16.20% Personal Breast Cancer No Personal Ovarian Cancer No Treatments None Family Cancers Mother with breast cancer at age 80; Sister with leioma, brain cancer at age 33. LOCATION: [facility] [place] BREAST COMPOSITION: Scattered areas fibroglandular density. FINDINGS: DIAGNOSTIC CATEGORY 2--BENIGN FINDING. NO CHANGE FROM COMPARISON. Scattered benign-appearing calcifications are present. Scattered benign-appearing lymph nodes are present. RIGHT BREAST: No significant suspicious finding. LEFT BREAST: No significant suspicious finding. RECOMMENDATIONS: ROUTINE MAMMOGRAM AND CLINICAL EVALUATION IN 12 MONTHS. PLEASE NOTE: A NORMAL MAMMOGRAM DOES NOT EXCLUDE THE POSSIBILITY OF BREAST CANCER. A CLINICALLY SUSPICIOUS PALPABLE LUMP SHOULD BE BIOPSIED. Dictated by: Elissa Thomason MD on 11/24/2021 at 09:00 Approved by: Elissa Thomason MD on 11/24/2021 at 09:15 Normal [facility] OCC BLD IMMUNO SCREENon 11-01 OCCULT BLOOD Negative Normal NEGATIVE [facility] Comment on above: Performed By: #### O BSCRN #### [facility] [place] [facility] [address] [place] [address] Dr. Perico Victor PROF 14(COMP METB)on 022 Albumin [Mass/Vol] 4.2 g/dL Normal 3.4-5.0 [facility] Comment on above: Performed By: #### A 1C #### [facility] [place] [facility] [address] [place] [address] Dr. Perico Victor Albumin/Globulin [Mass ratio] 1.1 {ratio} Normal [facility] Comment on above: Performed By: #### A 1C #### [facility] [place] [facility] [address] [place] [address] Dr. Perico Victor ALP [Catalytic activity/Vol] 65 U/L Normal 46-116 [facility] Comment on above: Performed By: #### A 1C #### [facility] [place] [facility] [address] [place] [address] Dr. Perico Victor ALT [Catalytic activity/Vol] 30 U/L Normal 14-59 [facility] Comment on above: Performed By: #### A 1C #### [facility] [facility] [address] [place] [address] Dr. Perico Victor Anion gap [Moles/Vol] 12.2 mmol/L Normal [facility] Comment on above: Performed By: #### A 1C #### [facility] [facility] [address] [place] [address] Dr. Perico Victor AST [Catalytic activity/Vol] 17 U/L Normal 15-37 [facility] Comment on above: Performed By: #### A 1C #### [facility] [facility] [address] [place] [address] Dr. Perico Victor Bilirubin [Mass/Vol] 0.6 mg/dL Normal 0.2-1.0 [facility] Comment on above: Performed By: #### A 1C #### [facility] [address] [place] [address] Dr. Perico Victor Calcium [Mass/Vol] 10.1 mg/dL Normal 8.5-10.1 [facility] Comment on above: Performed By: #### A 1C #### [facility] [address] [place] [address] Dr. Perico Victor Chloride [Moles/Vol] 104 mmol/L Normal 98-107 [facility] Comment on above: Performed By: #### A 1C #### [facility] [address] [address] [address] Perico Victor CO2 [Moles/Vol] 27.1 mmol/L Normal 21.0-32.0 [facility] Comment on above: Performed By: #### A 1C #### [facility] [address] [place] [address] Dr. Perico Victor Creatinine [Mass/Vol] 0.85 mg/dL Normal 0.55-1.02 [facility] Comment on above: Performed By: #### A 1C #### [facility] [address] [place] [address] Dr. Perico Victor EGFR-AF [place] >60 Normal >=60 [facility] Comment on above: Performed By: #### A 1C #### [facility] [address] [place] [address] Dr. Perico Victor EGFR-NON AF [place] >60 Normal >=60 [facility] Comment on above: Performed By: #### A 1C #### [facility] [address] [place] [address] Dr. Perico Victor Globulin (S) [Mass/Vol] 3.7 g/dL Normal [facility] Comment on above: Performed By: #### A 1C #### [facility] [address] [place] [address] Dr. Perico Victor Glucose [Mass/Vol] 110 mg/dL Critically high 74-106 [facility] Comment on above: Performed By: #### A 1C #### [facility] [address] [place] [address] Dr. Perico Victor Potassium [Moles/Vol] 4.3 mmol/L Normal 3.5-5.1 [facility] Comment on above: Performed By: #### A 1C #### [facility] [address] [place] [address] Dr. Perico Victor Protein [Mass/Vol] 7.9 g/dL Normal 6.4-8.2 [facility] Comment on above: Performed By: #### A 1C #### [facility] [address] [place] [address] Dr. Perico Victor Sodium [Moles/Vol] 139 mmol/L Normal 136-145 [facility] Comment on above: Performed By: #### A 1C #### [facility] [address] [place] [address] Dr. Perico Victor Urea nitrogen [Mass/Vol] 23.0 mg/dL Critically high 7.0-18.0 [facility] Comment on above: Performed By: #### A 1C #### [facility] [address] [place] [address] Dr. Perico Victor Urea nitrogen/Creatinine [Mass ratio] 27.1 mg/mg Normal [facility] Comment on above: Performed By: #### A 1C #### [facility] [address] [place] [address] Dr. Perico Victor TSHon 11-24-2021 TSH 2.646 uIU/mL Normal 0.358-3.[address] [facility] Comment on above: Performed By: #### A 1C #### [facility] [address] [place] [address] Dr. Perico Victor TSH RANGE SEE BELOW Normal [facility] Comment on above: Result Comment: <0.3 4 UIU/ml HYPERTHYROID 0.34-5.60 UIU/ml EUTHYROID >5.60 UIU/ml HYPOTHYROID Performed By: #### A 1C #### [facility] [address] [place] [address] Dr. Perico Victor [facility]31 SARS-CoV-2 (COVID-19) RNA ROSALINA+probe Ql (Unsp spec) Not detected Normal NOT DETECTED [facility] Comment on above: Result Comment: When diagnostic testing is negative, the possibility of a false negative should be considered in the context of a patient's recent exposures and the presence of clinical signs and symptoms consistent with SARS-CoV-2. This test is not yet approved or cleared by the [place] FDA. When there are no FDA-approved or cleared tests available, and other criteria are met, FDA can make tests available under an emergency access mechanism called an Emergency Use Authorization (EUA). The EUA for this test is supported by the [place] of Health and Human Service's declaration that circumstances exist to justify the emergency use of in vitro diagnostics for the detection and/or diagnosis of the virus that causes COVID-19. This EUA will remain in effect for the duration of the COVID-19 declaration justifying emergency of IVDs, unless it is terminated or revoked by the FDA (after which the test may no longer be used). Performed By: #### A 1C #### [facility] [address] [place] [address] Dr. Perico Victor [id number] 01-16-2020 SARS-CoV-2 Not Detected Normal Not Detected [facility] Comment on above: Result Comment: (NOT E) Testing was performed using the Aptima SARS-CoV-2 assay. This test was developed and its performance characteristics determined by [employer]. This test has not been FDA cleared or approved. This test has been authorized by FDA under an Emergency Use Authorization (EUA). This test is only authorized for the duration of time the declaration that circumstances exist justifying the authorization of the emergency use of in vitro diagnostic tests for detection of SARS-CoV-2 virus and/or diagnosis of COVID-19 infection under section 564(b)(1) of the Act, 21 U.S.C. 360bbb-3(b)(1), unless the authorization is terminated or revoked sooner. When diagnostic testing is negative, the possibility of a false negative result should be considered in the context of a patient's recent exposures and the presence of clinical signs and symptoms consistent with COVID-19. An individual without symptoms of COVID-19 and who is not shedding SARS-CoV-2 virus would expect to have a negative (not detected) result in this assay. Performed At: =[address], [place] [id number] Debbi Salgado MD Ph:[phone] Performed By: #### A COV #### [facility] [address] [id number] Religion Professor: Loyd Best MD Encounters Encounter Date Encounter Type Care Provider Facility Start: 06-23-2022 End: 06-23-[address] RICKIE REYNOLDS Facility:[facility] Start: 03-28-2022 End: 03-28-[address] RICKIE REYNOLDS Facility:[facility] Start: 03-02-2022 End: 03-02-[address] RICKIE REYNOLDS Facility:[facility] Start: 11-24-2021 End: 11-25-[address] RICKIE REYNOLDS Facility:[facility] Start: 11-16-2021 End: 11-16-[address] RICKIE REYNOLDS Facility:[facility] Start: 01-09-2020 End: 01-10-2020 Patient encounter procedure GLORIA LIU [facility] Start: 01-09-2020 End: 01-09-2020 Subsequent hospital visit by physician [facility] Comment on above: Special screening ex amination for viral disease Procedures Date Procedure Procedure Detail Performing Clinician Start: 01-09-2020 COVID-19 AMBULATORY REYMUNDO LIU Plan of Treatment Date Care Activity Detail Author Start: 03-03-2020 Influenza vaccination Flu vaccine (# 1) [place], [place] End: 01-09-2020 Covid-19 Ambulatory Covid-19 Ambulatory Lab Routine Special screening examination for viral disease 1 Occurrences starting 01/09/2020 until 01/09/2020 [place], [place] Comment on above: 1 Occurrences starti ng 01/09/2020 until 01/09/2020 Covid-19 Ambulatory Covid-19 Amb ulatory Lab Routine Special screening examination for viral disease 01/09/2020 7:34 PM EDT [place], [place] Payers Date Payer Category Payer Medicare [id number] 1955 Unknown [id number] 2.16.84 [id number] 1955 Unknown [id number] 2.16.84 [id number] 1955 Unknown [id number] 2.16.84 [id number] 1955 Unknown [id number] 2.16.84 [id number] 1955 Unknown [id number] 2.16.84 [id number] Social History Date Type Detail Facility Tobacco smoking status NHIS Unknown if ev er [facility] [place] Sex Assigned At Not on file [facility] [place] Summary Purpose Family History No Family History Records FoundNo Family History Records Found Advance Directives No Advanced Directives Records FoundDocuments on File Type Date 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 This clinical summary was aggregated from multiple sources. Caution should be exercised in using it in the provision of clinical care. This summary normalizes information from multiple sources, and as a consequence, information in this document may materially change the coding, format and clinical context of patient data. In addition, data may be omitted in some cases. CLINICAL DECISIONS SHOULD BE BASED ON THE PRIMARY CLINICAL RECORDS. [employer] provides no warranty or guarantee of the accuracy or completeness of information in this document.
[2024-02-09 06:38] LABS: Basophils Absolute Auto 0.1 10^3/uL (0.0-0.1); Basophils Percent Auto 1.5 % (0.2-2.0); Eosinophils Absolute Auto 0.4 10^3/uL (0.0-0.7); Eosinophils Percent Auto 5.3 % (0.9-7.0); Hematocrit 39.9 % (36.0-48.0); Hemoglobin 13.3 g/dL (12.0-16.0); Immature Granulocytes Abs Auto 0.02 10^3/uL (0.00-0.03); Immature Granulocytes Pct Auto 0.3 % (0.0-0.5); Lymphocytes Absolute Auto 2.1 10^3/uL (1.2-3.8); Mean Corpuscular HGB Conc 33.3 g/dL (29.9-35.2); Mean Corpuscular Hemoglobin 30.6 pg (26.7-34.0); Mean Corpuscular Volume 91.9 fL (81.0-99.0); Mean Platelet Volume 10.6 fL (9.5-13.5); Monocytes Absolute Auto 0.6 10^3/uL (0.3-0.8); Monocytes Percent Auto 8.4 % (1.7-12.0); Neutrophils Absolute Auto 4.2 10^3/uL (1.4-6.5); Neutrophils Percent Auto 56.5 % (43.0-75.0); Platelet Count 269 10^3/uL (150-450); Red Blood Count 4.34 10^6/uL (4.20-5.40); Red Cell Distribution Width 12.2 % (11.0-15.0); White Blood Count 7.5 10^3/uL (4.0-11.0)
[2024-02-09 07:04] LABS: Alanine Aminotransferase 25 U/L (14-59); Albumin Globulin Ratio 1.3; Alkaline Phosphatase 67 U/L (46-116); Anion Gap 12.1; Aspartate Amino Transferase 18 U/L (15-37); BUN Creatinine Ratio 23.5; Bilirubin Total 0.6 mg/dL (0.2-1.0); Calcium 10.2 mg/dL (8.5-10.1); Chloride 104 mmol/L (98-107); Chol HDL Ratio 2.3; Cholesterol 184 mg/dL (<=200); Estimated GFR (African America >60 (>=60); Estimated GFR (Non-African Ame >60 (>=60); Free T3 2.71 pg/mL (2.18-3.98); Globulin 3.2 g/dL; Glucose 105 mg/dL (74-106); HDL Cholesterol 80 mg/dL (40-60); Potassium 4.1 mmol/L (3.5-5.1); Sodium 139 mmol/L (136-145); Thyroid Stimulating Hormone 2.259 uIU/mL (0.358-3.740); Total Protein 7.2 g/dL (6.4-8.2); Triglycerides 66 mg/dL (<=150); VLDL CHOLESTEROL 13.2 mg/dL
[2024-02-09 08:18] LABS: Estimated Average Glucose 111 mg/dL; Glycohemoglobin A1C 5.5 % (4.5-6.2)
[2024-02-09 11:47] LABS: Internal Control Within Normal Limits; Occult Blood Negative
== END 2024-02-09 06:24 | disposition home or self-care (01) ==
PROVIDERS: PCP Family Medicine; Visit Provider Family Medicine
DX: I10 Essential (primary) hypertension (principal); R73.09 Other abnormal glucose; Z12.12 Encounter for screening for malignant neoplasm of rectum; D64.9 Anemia, unspecified
CPT/HCPCS: 36415; 80053; 80061; 83036; 83540; 84436; 84443; 84481; 85025; G0328

== ENCOUNTER 2024-02-13 13:54 | Outpatient (OUT) | payer MEDICARE, SELFPAY ==
--- NOTE | 2024-02-13 13:58 | MM_ITS ---
Patient Name: ISRRAEL LAZCANO MR#: [id number] : 1955 Exam Date: 02/13/2024 Ordering Doctor: DR RICKIE REYNOLDS . RADIOLOGY REPORT PROCEDURE: MM TOMOSYNTHESIS SCREENING BI COMPARISON: MG MAMM SCREEN 3D BERNA[place] CAD, 11/24/2021. MM TOMOSYNTHESIS SCREENING BI, 01/10/2023. INDICATIONS: Screening Calculator Name NCI Breast Cancer Risk Assessment Tool 5 Year Breast Cancer Risk 5.00% Lifetime Breast Cancer Risk 14.90% Personal Breast Cancer No Personal Ovarian Cancer No Treatments None Family Cancers Mother with breast cancer at age 80; Sister with leioma, brain cancer at age 33. LOCATION: [facility] BREAST COMPOSITION: There are scattered areas of fibroglandular density. FINDINGS: DIAGNOSTIC CATEGORY 2--BENIGN FINDING. NO CHANGE FROM COMPARISON. Scattered benign-appearing nodules are present. Scattered benign-appearing calcifications are present. Scattered benign-appearing lymph nodes are present. RIGHT BREAST: No significant suspicious finding. LEFT BREAST: No significant suspicious finding. RECOMMENDATIONS: ROUTINE MAMMOGRAM AND CLINICAL EVALUATION IN 12 MONTHS. PLEASE NOTE: A NORMAL MAMMOGRAM DOES NOT EXCLUDE THE POSSIBILITY OF BREAST CANCER. A CLINICALLY SUSPICIOUS PALPABLE LUMP SHOULD BE BIOPSIED. Dictated by: Robert Thomason MD on 02/13/2024 at 15:13 Approved by: Robert Thomason MD on 02/13/2024 at 15:21
== END 2024-02-13 13:55 | disposition home or self-care (01) ==
LOC: MAMMO 13:54
PROVIDERS: PCP Family Medicine; Visit Provider Family Medicine
DX: Z12.31 Encounter for screening mammogram for malignant neoplasm of breast (principal); Z80.3 Family history of malignant neoplasm of breast; Z80.8 Family history of malignant neoplasm of other organs or systems
CPT/HCPCS: 77063; 77067

== ENCOUNTER 2024-04-27 12:04 | Emergency (ER) | payer MEDICARE, SELFPAY ==
[2024-04-27] VITALS (14 sets, daily range): BP systolic 154–177; BP diastolic 83–101; PULSE 65–75; TEMP 36.9; O2SAT 94–97; BMI 25.6
--- OUTSIDE RECORDS SUMMARY | 2024-04-27 12:28 | XMS_ITS | CCD ---
Author Organization [facility] Care Team Providers Care Micropaleontologist Name Role Phone ED LIUJassonROGER Jacqueline Referring [...] spec) Not detected Normal NOT DETECTED [facility] Comment on above: Result Comment: This test is not yet approved or cleared by the [place] FDA. When there are no FDA-approved or cleared tests available, and other criteria are met, FDA can make tests available under an emergency access mechanism called an Emergency Use Authorization (EUA). The EUA for this test is supported by the [place] of Health and Human Service's (HHS's) declaration [...] SARS-CoV-2. Performed By: #### C VDTB #### [facility] [address] [place] [address] Dr. Perico Victor INFLUENZA A AND B [facility] 06-23 [facility] SEE BELOW Normal [facility] Comment on above: Result Comment: Nega tive for Flu A protein angiten. Infection due to Flu A cannot be ruled out. Flu A angiten in the sample may be below the detection limit of the test. Performed By: #### I NFLUAB #### [facility] [address] [place] [address] Dr. Perico Victor [facility] SEE BELOW Normal [facility] Comment on above: Result Comment: Nega tive for Flu B protein antigen. Infection due to Flu B cannot be ruled out. Flu B antigen in the sample may be below the detection limit of the test. Performed By: #### I NFLUAB #### [facility] [address] [place] [address] Dr. Perico Victor INFLUENZA A AG Negative Normal NEGATIVE SEE COMMENT [facility] Comment on above: Performed By: #### I NFLUAB #### [facility] [address] [place] [address] Dr. Perico Victor INFLUENZA B AG Negative Normal NEGATIVE SEE COMMENT [facility] Comment on above: Performed By: #### I NFLUAB #### [facility] [address] [place] [address] Dr. Perico Victor INTERNAL CONTROLS Within Normal Limits Normal Wi thin Normal Limits [facility] Comment on above: Performed By: #### I NFLUAB #### [facility] [address] [place] [address] Dr. Perico Victor Covid-19 PCR (CVDTB)on 03-04 SARS-CoV-2 (COVID-19) RNA ROSALINA+probe Ql (Unsp spec) Detected Critically abnormal NOT DETECTED [facility] Comment on above: Result Comment: This test is not yet approved or cleared by the [place] FDA. When there are no FDA-approved or cleared tests available, and other criteria are met, FDA can make tests available under an emergency access mechanism called an Emergency Use Authorization (EUA). The EUA for this test is supported by the Regulator Mechanic of Health and Human Service's (HHS's) declaration [...] used). Performed By: #### C VDTB #### [facility] [address] [address] [address] Perico Victor Covid-19 PCR (CVDTB)on 02-02 SARS-CoV-2 (COVID-19) RNA ROSALINA+probe Ql (Unsp spec) Not detected Normal NOT DETECTED [facility] Comment on above: Result Comment: This test is not yet approved or cleared by the [place] FDA. When there are no FDA-approved or cleared tests available, and other criteria are met, FDA can make tests available under an emergency access mechanism called an Emergency Use Authorization (EUA). The EUA for this test is supported by the [place] of Health and Human Service's (HHS's) declaration [...] SARS-CoV-2. Performed By: #### C VDTBH #### [facility] [address] [place] [address] Dr. Perico Victor T4 LABCORPon 11-26-2021 T4 [Mass/Vol] 9.2 ug/dL Normal 4.5-12.0 [facility] Comment on above: Performed By: #### T 4LC #### [facility] [address] [place] [address] Dr. Perico Victor INSULINon 11-25-2021 Insulin 14.4 uIU/mL Normal 2.6-24.[address] [facility] Comment on above: Performed By: #### I NSULIN #### [facility] [address] [place] [address] Dr. Perico Victor CBC AUTO DIFFon 11-24-2021 BASO # 0.1 103/ul Normal 0.0-0.1 [facility] Comment on above: Performed By: #### C BC #### [facility] [address] [place] [address] Dr. Perico Victor Basophils/100 WBC (Bld) 1.2 % Normal 0.2-2.[address] [facility] Comment on above: Performed By: #### C BC #### [facility] [address] [place] [address] Dr. Perico Victor EO # 0.5 103/ul Normal 0.0-0.[address] [facility] Comment on above: Performed By: #### C BC #### [facility] [address] [place] [address] Dr. Perico Victor Eosinophils/100 WBC (Bld) 5.8 % Normal 0.9-7.[address] [facility] Comment on above: Performed By: #### C BC #### [facility] [address] [place] [address] Dr. Perico Victor Erythrocyte distribution width (RBC) [Ratio] 12.3 % Normal 11.0-15.0 [facility] Comment on above: Performed By: #### C BC #### [facility] [address] [place] [address] Dr. Perico Victor Hematocrit (Bld) [Volume fraction] 41.7 % Normal 36.0-48.0 [facility] Comment on above: Performed By: #### C BC #### [facility] [address] [place] [address] Dr. Perico Victor Hemoglobin (Bld) [Mass/Vol] 13.6 g/dL Normal 12.0-16.0 [facility] Comment on above: Performed By: #### C BC #### [facility] [address] [place] [address] Dr. Perico Victor IG # 0.03 10e3/ul Normal 0.00-0.03 [facility] Comment on above: Performed By: #### C BC #### [facility] [address] [place] [address] Dr. Perico Victor IG % 0.3 % Normal 0.0-0.5 [facility] Comment on above: Performed By: #### C BC #### [facility] [address] [place] [address] Dr. Perico Victor LYMPH # 2.8 103/ul Normal 1.2-3.8 [facility] Comment on above: Performed By: #### C BC #### [facility] [address] [place] [address] Dr. Perico Victor Lymphocytes/100 WBC (Bld) 30.5 % Normal 20.5-60.0 [facility] Comment on above: Performed By: #### C BC #### [facility] [address] [place] [address] Dr. Perico Victor MANUAL DIFF REQ NO Normal [facility] Comment on above: Performed By: #### C BC #### [facility] [address] [place] [address] Dr. Perico Victor MCH (RBC) [Entitic mass] 30.6 pg Normal 26.7-34.0 [facility] Comment on above: Performed By: #### C BC #### [facility] [address] [place] [address] Dr. Perico Victor MCHC (RBC) [Mass/Vol] 32.6 g/dL Normal 29.9-35.[address] [facility] Comment on above: Performed By: #### C BC #### [facility] [address] [place] [address] Dr. Perico Victor MCV (RBC) [Entitic vol] 93.7 fL Normal 81.0-99.0 [facility] Comment on above: Performed By: #### C BC #### [facility] [address] [place] [address] Dr. Perico Victor MONO # 0.6 103/ul Normal 0.3-0.[address] [facility] Comment on above: Performed By: #### C BC #### [facility] [address] [place] [address] Dr. Perico Victor Monocytes/100 WBC (Bld) 6.6 % Normal 1.7-12.0 [facility] Comment on above: Performed By: #### C BC #### [facility] [address] [place] [address] Dr. Perico Victor NEUT # 5.0 103/ul Normal 1.4-6.5 [facility] Comment on above: Performed By: #### C BC #### [facility] [address] [place] [address] Dr. Perico Victor Neutrophils/100 WBC (Bld) 55.6 % Normal 43.0-75.[address] [facility] Comment on above: Performed By: #### C BC #### [facility] [address] [place] [address] Dr. Perico Victor Platelet mean volume (Bld) [Entitic vol] 11.2 fL Normal 9.5-13.[address] [facility] Comment on above: Performed By: #### C BC #### [facility] [address] [place] [address] Dr. Perico Victor PLT 324 103/ul Normal 150-[address] [facility] Comment on above: Performed By: #### C BC #### [facility] [address] [place] [address] Dr. Perico Victor RBC 4.45 106/ul Normal 4.20-5.40 [facility] Comment on above: Performed By: #### C BC #### [facility] [address] [place] [address] Dr. Perico Victor WBC 9.0 103/ul Normal 4.0-11.0 [facility] Comment on above: Performed By: #### C BC #### [facility] [address] [place] [address] Dr. Perico Victor FREE THYROXINE INDEX T7on FTI 2.94 Normal 1.30-4.50 [facility] Comment on above: Performed By: #### A 1C #### [facility] [address] [place] [address] Dr. Perico Victor T3U 32.0 % Normal 30.0-39.0 [facility] Comment on above: Performed By: #### A 1C #### [facility] [address] [place] [address] Dr. Perico Victor T4 [Mass/Vol] 9.20 ug/dL Normal 4.80-13.90 [facility] Comment on above: Performed By: #### A 1C #### [facility] [address] [place] [address] Dr. Perico Victor GLYCOHEMOGLOBIN A1Con 2021 ADA RECOMMENDATION SEE BELOW Normal [facility] Comment on above: Result Comment: ADA RECOMMENDED LIMIT 4.0 - 6.0 ADA THERAPEUTIC TARGET < 7.0 ACTION SUGGESTED > 7.0 Performed By: #### A 1C #### [facility] [address] [place] [address] Dr. Perico Victor Glucose [Mass/Vol] 114 mg/dL Normal [facility] Comment on above: Performed By: #### A 1C #### [facility] [address] [place] [address] Dr. Perico Victor HbA1c (Bld) [Mass fraction] 5.6 % Normal 4.5-6.2 [facility] Comment on above: Performed By: #### A 1C #### [facility] [address] [place] [address] Dr. Perico Victor IRONon 11-24-2021 Iron [Mass/Vol] 75.0 ug/dL Normal 50.0-170.[address] [facility] Comment on above: Performed By: #### I SULEIMAN #### [facility] [address] [address] [address] Perico Victor LIPID PROFILEon 11-24-2021 CHOL-HDL RATIO NORM SEE BELOW Normal [facility] Comment on above: Result Comment: 3.3 - 4.4 LOW RISK 4.4 - 7.1 AVERAGE RISK 7.1 - 11.0 MODERATE RISK >11.0 HIGH RISK Performed By: #### A 1C #### [facility] [address] [address] [address] Perico Victor Cholesterol [Mass/Vol] 171 mg/dL Normal <=200 [facility] Comment on above: Performed By: #### A 1C #### [facility] [address] [address] [address] Perico Victor Cholesterol in HDL [Mass/Vol] 68 mg/dL Critically high 40-60 [facility] Comment on above: Performed By: #### A 1C #### [facility] [address] [address] [address] Perico Victor Cholesterol in LDL [Mass/Vol] 89.6 mg/dL Normal [facility] Comment on above: Performed By: #### A 1C #### [facility] [address] [address] [address] Perico Victor Cholesterol.total/Ch olesterol in HDL [Mass ratio] 2.5 {ratio} Normal [facility] Comment on above: Performed By: #### A 1C #### [facility] [address] [address] [address] Perico Victor HDL NORMAL > or = 60 mg/dl - LOW CARDIOVASCULAR RISK <40 mg/dl - HIGH CARDIOVASCULAR RISK Normal [facility] Comment on above: Performed By: #### A 1C #### [facility] [address] [address] [address] Perico Victor LDL CALC NORMAL SEE BELOW Normal [facility] Comment on above: Result Comment: <100 mg/dl OPTIMAL 100 - 129 mg/dl NEAR OR ABOVE OPTIMAL 130 - 159 mg/dl BORDERLINE HIGH 160 - 189 mg/dl HIGH >190 mg/dl VERY HIGH Performed By: #### A 1C #### [facility] [address] [place] [address] Dr. Perico Victor Triglyceride [Mass/Vol] 67 mg/dL Normal <=150 [facility] Comment on above: Performed By: #### A 1C #### [facility] [address] [address] [address] Perico Victor VLDL CALC 13.4 mg/dL Normal [facility] Comment on above: Performed By: #### A 1C #### [facility] [address] [place] [address] Dr. Perico Victor MG MAMM SCREEN 3D BERNADETTE CADon 11-24-2021 MG MAMM SCREEN 3D BERNADETTE CAD Patient: ISRRAEL LAZCANO Exam Date: 11/24/2021 : 1955 Gender:F Ordering : DR RICKIE REYNOLDS . Admission #: [id number] Family : Order #: [id number] CLICK HERE TO VIEW EXAM RADIOLOGY REPORT [...] brain cancer at age 32. LOCATION: [facility] BREAST COMPOSITION: Scattered areas fibroglandular density. FINDINGS: [...] Thomason MD on 11/24/2021 at 09:15 Normal [facility] OCC BLD IMMUNO SCREENon 11-01 OCCULT BLOOD Negative Normal NEGATIVE [facility] Comment on above: Performed By: #### O BSCRN #### [facility] [address] [place] [address] Dr. Perico Victor PROF 14(COMP METB)on 022 Albumin [Mass/Vol] 4.2 g/dL Normal 3.4-5.0 [facility] Comment on above: Performed By: #### A 1C #### [facility] [address] [place] [address] Dr. Perico Victor Albumin/Globulin [Mass ratio] 1.1 {ratio} Normal [facility] Comment on above: Performed By: #### A 1C #### [facility] [address] [place] [address] Dr. Perico Victor ALP [Catalytic activity/Vol] 65 U/L Normal 46-116 [facility] Comment on above: Performed By: #### A 1C #### [facility] [address] [place] [address] Dr. Perico Victor ALT [Catalytic activity/Vol] 30 U/L Normal 14-59 [facility] Comment on above: Performed By: #### A 1C #### [facility] [address] [place] [address] Dr. Perico Victor Anion gap [Moles/Vol] 12.2 mmol/L Normal [facility] Comment on above: Performed By: #### A 1C #### [facility] [address] [place] [address] Dr. Perico Victor AST [Catalytic activity/Vol] 17 U/L Normal 15-37 [facility] Comment on above: Performed By: #### A 1C #### [facility] [address] [place] [address] Dr. Perico Victor Bilirubin [Mass/Vol] 0.6 mg/dL Normal 0.2-1.0 [facility] Comment on above: Performed By: #### A 1C #### [facility] [address] [place] [address] Dr. Perico Victor Calcium [Mass/Vol] 10.1 mg/dL Normal 8.5-10.1 [facility] Comment on above: Performed By: #### A 1C #### [facility] [address] [place] [address] Dr. Perico Victor Chloride [Moles/Vol] 104 mmol/L Normal 98-107 [facility] Comment on above: Performed By: #### A 1C #### [facility] [address] [address] [address] Perico Victor CO2 [Moles/Vol] 27.1 mmol/L Normal 21.0-32.0 [facility] Comment on above: Performed By: #### A 1C #### [facility] [address] [place] [address] Dr. Perico Victor Creatinine [Mass/Vol] 0.85 mg/dL Normal 0.55-1.02 [facility] Comment on above: Performed By: #### A 1C #### [facility] [address] [place] [address] Dr. Perico Victro EGFR-AF CITIZEN [place] >60 Normal >=60 [facility] Comment on above: Performed By: #### A 1C #### [facility] [address] [place] [address] Dr. Perico Victor EGFR-NON AF CITIZEN [place] >60 Normal >=60 [facility] Comment on above: Performed By: #### A 1C #### [facility] [address] [place] [address] Dr. Perico Victor Globulin (S) [Mass/Vol] 3.7 g/dL Normal [facility] Comment on above: Performed By: #### A 1C #### [facility] [address] [place] [address] Dr. Perico Victor Glucose [Mass/Vol] 110 mg/dL Critically high 74-106 [facility] Comment on above: Performed By: #### A 1C #### [facility] [address] [place] [address] Dr. Perico Victor Potassium [Moles/Vol] 4.3 mmol/L Normal 3.5-5.1 [facility] Comment on above: Performed By: #### A 1C #### [facility] [address] [place] [address] Dr. Perico Victor Protein [Mass/Vol] 7.9 g/dL Normal 6.4-8.2 [facility] Comment on above: Performed By: #### A 1C #### [facility] [address] [place] [address] Dr. Perico Victor Sodium [Moles/Vol] 139 mmol/L Normal 136-145 [facility] Comment on above: Performed By: #### A 1C #### [facility] [address] [place] [address] Dr. Perico Victor Urea nitrogen [Mass/Vol] 23.0 mg/dL Critically high 7.0-18.0 [facility] Comment on above: Performed By: #### A 1C #### [facility] [address] [place] [address] Dr. Perico Victor Urea nitrogen/Creatinine [Mass ratio] 27.1 mg/mg Normal [facility] Comment on above: Performed By: #### A 1C #### [facility] [address] [place] [address] Dr. Perico Victor TSHon 11-24-2021 TSH 2.646 uIU/mL Normal 0.358-3.740 [facility] Comment on above: Performed By: #### A 1C #### [facility] [address] [place] [address] Dr. Perico Victor TSH RANGE SEE BELOW Normal [facility] Comment on above: Result Comment: <0.3 4 UIU/ml HYPERTHYROID 0.34-5.60 UIU/ml EUTHYROID >5.60 UIU/ml HYPOTHYROID Performed By: #### A 1C #### [facility] [address] [place] [address] Dr. Perico Victor [facility]31 SARS-CoV-2 (COVID-19) RNA ROSALINA+probe Ql (Unsp spec) Not detected Normal NOT DETECTED [facility] Comment on above: Result Comment: When diagnostic [...] for this test is supported by the Regulator Mechanic of Health and Human Service's declaration that [...] used). Performed By: #### A 1C #### [facility] [address] [place] [address] Dr. Perico Victor [id number] 01-16-2020 SARS-CoV-2 Not Detected Normal Not Detected [facility] Comment on above: Result Comment: (NOT E) Testing was performed using the Aptima SARS-CoV-2 assay. This test was developed and its performance characteristics determined by [employer]. This test has not been FDA cleared [...] detected) result in this assay. Performed At: =[address], [place] [id number] Debbi Salgado MD Ph:[phone] Performed By: #### A COV #### [facility] [address] [id number] Advanced Manufacturing Engineer: Loyd Best MD Encounters Encounter Date Encounter [...] End: 01-10-2020 Patient encounter procedure [facility] Start: 01-09-2020 End: 01-09-2020 Subsequent hospital visit by physician [facility] Comment on above: Special screening ex amination for viral disease Procedures Date Procedure Procedure Detail Performing Clinician Start: 01-09-2020 COVID-19 AMBULATORY REYMUNDO LIU Plan of Treatment Date Care Activity Detail Author Start: 03-03-2020 Influenza vaccination Flu vaccine (# 1) [place], [place] End: 01-09-2020 Covid-19 Ambulatory Covid-19 Ambulatory Lab Routine Special screening examination for viral disease 1 Occurrences starting 01/09/2020 until 01/09/2020 [place], [place] Comment on above: 1 Occurrences starti ng 01/09/2020 until 01/09/2020 Covid-19 Ambulatory Covid-19 Amb ulatory Lab Routine Special screening examination for viral disease 01/09/2020 7:34 PM EDT [place], [place] Payers Date Payer Category Payer Medicare [id number] 1955 Unknown [id number] [id number] [id number] 1955 Unknown [id number] 2.16.84 [id number] 1955 Unknown [id number] 2.16.84 [id number] 1955 Unknown [id number] 2.16.84 [id number] 1955 Unknown [id number] 2.16.84 [id number] Social History Date Type Detail Facility Tobacco smoking status NHIS Unknown [facility] ev er [facility] [place] Sex Assigned At Not on file [facility] [place] Summary Purpose Family History No Family History Records FoundNo Family History Records Found Advance Directives No Advanced Directives Records FoundDocuments on File 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 [employer] provides no warranty or guarantee of the accuracy or completeness of information in this document.
--- NOTE | 2024-04-27 12:31 | ECG_ITS ---
[facility] Test Date: 2024-04-27 Pat Name: ISRRAEL LAZCANO Department: Room: - Gender: Female Compactor Driver: : 1955 Requested By: RICKIE REYNOLDS Order Number: [id number] Reading MD: JUANA CHA Measurements Intervals [place] Rate: 68 P: 67 TX: 140 QRS: 60 QRSD: 76 T: 64 QT: 412 QTc: 429 Interpretive Statements 1100 Sinus rhythm 9110 normal ECG Compared to ECG 03/09/2023 11:06:01 Sinus bradycardia no longer present Electronically Signed On 04-30-2024 22:59:50 EDT by JUANA CHA
--- NOTE | 2024-04-27 12:33 | ED.ANXIETY1 ---
HPI - Anxiety General Chief Complaint: Anxiety Stated Complaint: HIGH BLOOD PRESSURE Time Seen by Provider: 04/27/24 12:21 Source: patient Mode of arrival: walk-in Limitations: no limitations History of Present Illness HPI narrative: 68-year-old female presents to the emergency department for an anxiety attack. She had it this morning and was feeling very shaky. She took a hydroxyzine. She is feeling improved now but she was worried about having a heart attack and she came in here to get checked. She does not seem to have any chest pain. Related Data Home Medications ?Medication ?Instructions ?Recorded ?Confirmed multivitamin (Daily Multi-Vitamin 1 tab PO DAILY 03/09/23 03/09/23 tablet) Previous Rx's ?Medication ?Instructions ?Recorded oxycodone-acetaminophen 5 mg-325 1 tab PO Q6H PRN pain #14 tabs 03/04/23 mg tablet (Percocet) oxycodone-acetaminophen 5 mg-325 1 - 2 tab PO Q4H PRN pain #14 tabs 03/13/23 mg tablet (Percocet) amlodipine 5 mg tablet (Norvasc) 5 mg PO DAILY #10 tabs 04/27/24 Allergies Allergy/AdvReac Type Severity Reaction Status Date / Time No Known Drug Allergies Allergy Verified 03/13/23 11:40 Review of Systems ROS Narrative A ten point review of systems is negative except as noted above. PFSH PFS Medical History (Updated 04/27/24 @ 13:30 by Dashawn Church MD) Cough ?R05.9 - Cough, unspecified (ICD-10) COVID ?U07.1 - COVID-19 (ICD-10) Radial fracture ?S52.90XA - Unspecified fracture of unspecified forearm, initial encounter for closed fracture (ICD-10) Hepatitis C ?B19.20 - Unspecified viral hepatitis C without hepatic coma (ICD-10) Surgical History (Updated 03/09/23 @ 10:35 by Charmaine Hager RN) [place] teeth removed ?K08.409 - Partial loss of teeth, unspecified cause, unspecified class (ICD-10) History of ?Z98.891 - History of uterine scar from previous surgery (ICD-10) Hx of tonsillectomy ?Z90.89 - Acquired absence of other organs (ICD-10) H/O: hysterectomy ?Z90.710 - Acquired absence of both cervix and uterus (ICD-10) Family History (Updated 03/09/23 @ 10:37 by Charmaine Hager RN) Other Alcoholism CAD (coronary artery disease) Family history of cancer Family history of hypertension Family history of myocardial infarction Social History (Updated 03/09/23 @ 10:58 by Charmaine Hager RN) Within the past year, how often did you have a drink containing alcohol: never Within the past year, how many standard drinks containing alcohol did you have on a typical day: 1 or 2 Within the past year, how often did you have six or more drinks on one occasion: never Total score: 0 Score interpretation: A score less than 3 is consistent with normal alcohol consumption. Smoking status: Former smoker Second hand tobacco smoke exposure: Yes Non-prescribed substance use: denies use Previous occupational history: Exit[employer]y- [employer] in [employer] Known occupational exposures/hazards: No Highest level of school completed/degree received: Associate degree: occupational, technical, vocational program Little interest or pleasure in doing things: not at all Feeling down, depressed, or hopeless: several days Do you think of yourself as: straight/heterosexual Gender Identity: female Exam Narrative Exam Narrative: Nurses note and vital signs reviewed and patient is not hypoxic. General: The patient appears well and in no apparent distress. Patient is resting comfortably on cart. Skin: Warm, dry, no pallor noted. There is no rash noted. Head: Normocephalic, atraumatic Eye: Normal conjunctiva, no drainage Ears, Nose, Mouth, and Throat: oral mucosa is moist. Nares patent. Cardiovascular: Regular Rate and Rhythm Respiratory: Patient is in no distress, no accessory muscle use, lungs are clear to auscultation, no wheezing, rales or rhonchi Back: non-tender GI: Soft and nontender Musculoskeletal: The patient has no evidence of calf tenderness, no pitting edema, symmetrical pulses noted bilaterally Neurological: A&O, normal speech Psychiatric: Cooperative Constitutional Vital Signs, click to edit/add: Last Vital Signs Temp 98.5 F 04/27/24 12:11 Pulse 71 04/27/24 13:01 Resp 24 H 04/27/24 13:01 BP 154/101 H 04/27/24 13:01 Pulse Ox 96 04/27/24 13:01 Course Vital Signs Vital signs: Vital Signs Temperature 98.5 F 04/27/24 12:11 Pulse Rate 70 04/27/24 12:11 Respiratory Rate 16 04/27/24 12:11 Blood Pressure 171/86 H 04/27/24 12:11 Pulse Oximetry 97 04/27/24 12:11 Temperature 98.5 F 04/27/24 12:11 Pulse Rate 71 04/27/24 13:01 Respiratory Rate 24 H 04/27/24 13:01 Blood Pressure 154/101 H 04/27/24 13:01 Pulse Oximetry 96 04/27/24 13:01 MDM - Anxiety MDM Narrative Medical decision making narrative: In regards to the anxiety the patient is feeling improved and did not need any intervention here. Her blood pressure has been consistently elevated and she will be prescribed Norvasc and will follow-up promptly with her PCP this week. Treatment diagnosis and follow-up were discussed with the patient. Differential Diagnosis Differential diagnosis: Likely acute anxiety and other (Hypertension) ECG Data Attestation: I personally reviewed and interpreted this ECG as follows: (EKG on my interpretation shows normal sinus rhythm with a rate of 68 and no acute change) Discharge Plan Discharge Chief Complaint: Anxiety Clinical Impression: Acute anxiety, Hypertension Patient Disposition: Home, Self-Care Time of Disposition Decision: 13:30 Condition: Good Mode of Transportation: Private Vehicle Prescriptions / Home Meds: New amlodipine [Norvasc] 5 mg tablet 5 mg PO DAILY Qty: 10 0RF No Action multivitamin [Daily Multi-Vitamin] Tablet 1 tab PO DAILY oxycodone-acetaminophen [Percocet] 5-325 mg tablet 1 - 2 tab PO Q4H PRN (Reason: pain) Qty: 14 0RF oxycodone-acetaminophen [Percocet] 5-325 mg tablet 1 tab PO Q6H PRN (Reason: pain) Qty: 14 0RF Print Language: Occitan Instructions: Hypertension (ED), Anxiety (ED) Additional Instructions: Call Dr. Chance's office on Monday to schedule a follow-up appointment. Referrals: Shaggy Cheng MD [Primary Care Provider] - 1 week
== END 2024-04-27 13:48 | disposition home or self-care (01) ==
PROVIDERS: Emergency Provider Emergency Medicine; PCP Family Medicine
DX: F41.9 Anxiety disorder, unspecified (principal); I10 Essential (primary) hypertension; Z87.891 Personal history of nicotine dependence
CPT/HCPCS: 93005; 99283

== ENCOUNTER 2025-02-20 13:51 | Outpatient (OUT) | payer MEDICARE, SELFPAY ==
--- OUTSIDE RECORDS SUMMARY | 2024-05-08 09:00 | XMS_ITS ---
Author Organization [facility] in [place] Address [address] [place] [address] Care Team Providers Care Chamber Magistrate Name Role Phone Juice Cheng Primary Care Provider [phone] Allergies No Known Allergies REASON FOR VISIT f/u from hospital, Hypertension, Anxiety Medications Medication SIG (Take, Route, Frequency, Duration) Notes Start Date End Date Status Calcium 600 MG 2 tablets Orally Twi ce a day 12/28/2023 Active Ibuprofen 800 MG 1 tablet with food o r milk as needed Orally every 8 hrs for 30 days PRN Active amLODIPine Besylate 5 MG 1 tablet Orally Once a day for 30 days 05/08/2024 Active hydrOXYzine HCl 25 MG 1 tablet Orally qid As needed Active Magnesium 250 MG 2 tablet with a meal Orally Once a day 12/28/2023 Active Vitamin D (Cholecalciferol) 50 MCG (2000 UT) 1 capsule Orally Once a day Active Social History Tobacco Use: Social History Observation Description Date Details (start date - stop date) Former Smoker 11/09/1964 - 07/22/2012 Tobacco Use/Smoking Question Answer Notes Patient is a former smoker When did you start smoking? 11/09/1964 When did you stop smoking? 07/22/2012 How long has it been since you last smoked? > 10 years AUDIT-C (Standard) Question Answer Notes Did you have a drink containing alcohol in the p ast year? No Points 0 Interpretation Negative Vital Signs Blood pressure systolic 140 mm Hg 05/08/20 24 Blood pressure diastolic 80 mm Hg 024 Height 70.5 in 05/08/2024 Weight 192.0 lbs 05/08/2024 BMI 27.16 kg/m2 05/08/2024 Encounters Encounter Location Date Provider Diagnosis [facility] [address] [place] [address] 05/08/2024 Juice Cheng Hypertension I10 Assessments Encounter Date Diagnosis (ICD Code) Assessment Notes Treatment Notes Treatment Clinical Notes Section Notes 05/08/2024 Hypertension (ICD-10 - I10) Plan Of Treatment Medication Medication Name Sig Start Date Stop Date Notes amLODIPine Besylate 5 MG 1 tablet Orally Once a day for 30 days 05/08/2024 hydrOXYzine HCl 25 MG 1 tablet Orally qid Progress Notes * Deanna PERDUE SDOB:1955 (68 yo F)Acc No.[id number]:05/08/2024 Progress Note Patient: Deanna HERNANDEZ Provider: Belinda Cheng ([facility]), :1955 A ge:68 Y S ex:Female Date:05/08/2024 [address] Check In:12:55 PM ESTCheck O ut:01:28 PM EST Subjective: * Chief Complaints: * 1 . F/u from hospital. 2. Hypertension, Anxiety. * HPI: G eneral: had axiety attack -then bp spiked and felt worse- just wouldnt settle down seen in urgernt care firsyt - started on amlodipine -. * ROS: E ENT: hearing changes d enies. v isual changes d enies.?non-healing mouth sores d enies. s wollen glands or neck lumps d enies. h oarseness d enies. s ore throat d enies. d ifficulty swallowing d enies. n ose bleeds d enies. n vi congestion d enies. e ar ache d enies. e ar discharge?denies. r inging in ears d enies. l ight sensitivity d enies. e ye pain d enies. b lurring d enies. e ye irritation d enies. d ouble vision d enies.?vision loss d enies. G eneral/Constitutional: Sweats: D enies. F atigue d enies. S leep problems d enies. A norexia d enies. M alaise d enies. W eight loss d enies.?Fatigue or Weakness d enies. F ever or Chills d enies. C ardiovascular: Shortness of Breath w/lying flat d enies. L ightheadedness/dizziness d enies. C hest tightness/ heavy pressure d enies. S welling of legs, ankles, or feet d enies. W aking up with shortness of breath d enies. C hest pain denies. P alpitations d enies. W eight gain d enies. R espiratory: Chronic or frequent cough d enies. C oughing up blood?denies. D ifficulty breathing d enies. P roductive cough d enies. S noring?denies. S hortness of breath that awakens from sleep (PND) d enies. C hest pain d enies. S putum production d enies. W heezing d enies. M usculoskeletal: Joint pain d enies. J oint Fluid d enies. B ack pain d enies. K nee pain d enies. N ruslan pain d enies. J oint Stiffness d enies. M uscle cramps d enies. W eakness of muscles d enies. A rthritis d enies. M uscle aches d enies. P ain in shoulder(s) d enies. S wollen joints d enies. 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 Modified On:11/29/2022U Status:confirmed M23.8X2 Other internal deran gements of left knee Modified On:11/29/2022U Status:confirmed I10 Hypertension Modified On:11/30/2022/U Status:confirmed B19.20 Hepatitis C Modified On:11/29/2022U Status:confirmed M85.80 Osteopenia Modified On:11/29/2022U Status:confirmed J20.9 Acute bronchitis Modified On:11/29/2022/U Status:confirmed Z00.00 Well adult Modified On:11/30/2022W/U Status:confirmed K52.9 Acute gastroenteriti s Modified On:11/29/2022/U Status:confirmed M23.91 Internal derangement of knee, right Modified On:11/30/2022/U Status:confirmed U07.1 COVID-19 virus infec tion Modified On:11/29/2022/U Status:confirmed S52.591A Other fractures of l ower end of right radius, initial encounter for closed fracture Modified On:03/07/2023/U Status:confirmed I49.9 Abnormal heart rhyth m Modified On:12/28/2023W/U Status:confirmed * Medical History: C OVID-19 virus infection, Asymptomatic varicose veins of bilateral lower extremities, Osteopenia, Hypertension, Acute gastroenteritis, Acute bronchitis, Hepatitis C, Other internal derangements of left knee, Internal derangement of knee, right, Well adult. * Surgical History: h ysterectomy 10/1997, Internal Fixation of Right Radial Fracture 03/13/2023. * Hospitalization/Major Diagno stic Procedure: Belinda magaña Past Hospitalization. * Family History: F ather: 78 yrs, diagnosed with Unspecified heart disease. M other: 80 yrs, diagnosed with Other malignant neoplasm of unspecified site. S ister(s): 34 yrs, diagnosed with Other malignant neoplasm of unspecified site. S on(s): alive. D soncalixtoer(s): alive. 1 son(s) , 1 daughter(s) - healthy. . * Social History: T obacco Use: T obacco Use/Smoking P atient is a f ormer smoker W hen did you start smoking? 0 11/09/1964 W hen did you stop smoking? 0 07/22/2012 H ow long has it been since you last smoked??> 10 years D rug/Alcohol: A [place]-C (Standard) D id you have a drink containing alcohol in the past year? N o P oints 0 I nterpretation N egative * Medications: T aking amLODIPine Besylate 5 MG Tablet 1 tablet Orally Once a day , Taking Calcium 600 MG Tablet 2 tablets Orally Twice a day , Taking Ibuprofen 800 MG Tablet 1 tablet with food or milk as needed Orally every 8 hrs , Notes to Pharmacist: PRN, Taking Magnesium 250 MG Tablet 2 tablet with a meal Orally Once a day , Taking Vitamin D (Cholecalciferol) 50 MCG (1999) Capsule 1 capsule Orally Once a day , Discontinued Amoxicillin-Pot Clavulanate 875-125 MG Tablet 1 tablet Orally every 12 hrs , Discontinued hydrOXYzine HCl 25 MG Tablet 1 tablet as needed Orally Once a day , Notes to Pharmacist: PRN, Medication List reviewed and reconciled with the patient * Allergies: N .K.D.A. Objective: * Vitals: W t:192.0lbs, Ht: 70.5 in, BP:140/80mm Hg, BMI:27.16Index, Ht-cm: 179.07 cm, Wt- k.09 kg. * Examination: P hysical Exam: GENERAL: w ell developed, well nourished, in no acute distress. HEAD: n ormocephalic/atraumatic. EYES: p upils equal, round and reactive to light, conjunctivae and sclerae normal. EARS: n o deformity or lesion of external ear, canals and TM appear normal bilaterally, TM's intact, not inflamed with normal light reflex, hearing grossly normal to conversational speech. NOSE: n o deformity, discharge, inflammation, or lesions.? MOUTH: m ucous membranes moist, normal oropharynx and posterior pharynx without lesions or exudates, tongue normal, dentition normal. NECK: n ruslan supple, no masses or palpable cervical nodes, trachea midline, thyroid without nodules, masses, tenderness, or enlargement. CHEST: n o chest wall deformity, no chest wall tenderness.? LUNGS: n ormal respiratory effort and clear to auscultation, no wheezes, rales, or rhonchi, good air exchange. CARDIO: r egular rate and rhythm, normal S1 and S2, nor murmur, rub, or gallop. PULSES: n ormal capillary refill. ABDOMEN: s oft, non-distended, non-tender, no masses. MUSCULOSKELETAL: n o deformity or scoliosis noted, normal range of motion, joints normal, no erythema, edema, effusion, or ecchymosis. EXTREMITY: n o clubbing, cyanosis, edema, or deformity with normal ROM in both upper and lower bilateral extremities. NEUROLOGIC: g rossly normal. SKIN: n o rashes, ulcerations, or suspicious lesions. LYMPH NODES: n o cervical adenopathy, nodes normal. MENTAL STATUS: a lert and oriented x3, normal mood and affect. Assessment: * Assessment: 1. H ypertension - I10 (Primary) Plan: * Treatment: * Preventive Medicine: Screenings/Counseling: B OR ACTION PLAN Above Normal BMI Follow-up D ietary management education, guidance, and counseling * * Sign off status: Completed Visit Status: C HK (Check Out) true * Provider: Belinda Cheng ([facility])MD Date: 1 07/08/2023 Generated for Printi ng/Faxing/eTransmitting on: 0 02/20/2025 01:52 PM EDT History and Physical Notes * HPI (History of Present Illness) Category Sub-Category Detail Notes Category Not es General had axiety attack -then bp spiked and felt worse- just wouldnt settle down seen in urgernt care firsyt - started on amlodipine - Examination Category Sub-Category Detail Notes Category Not es Physical Exam GENERAL: well developed, well nourished, in no acute distress HEAD: normocephalic/atraum atic EYES: pupils equal, round and reactive to light, conjunctivae and sclerae normal EARS: no deformity or lesi on of external ear, canals and TM appear normal bilaterally, TM's intact, not inflamed with normal light reflex, hearing grossly normal to conversational speech NOSE: no deformity, discha rge, inflammation, or lesions MOUTH: mucous membranes morgan st, normal oropharynx and posterior pharynx without lesions or exudates, tongue normal, dentition normal NECK: neck supple, no mass es or palpable cervical nodes, trachea midline, thyroid without nodules, masses, tenderness, or enlargement CHEST: no chest wall deform ity, no chest wall tenderness LUNGS: normal respiratory e ffort and clear to auscultation, no wheezes, rales, or rhonchi, good air exchange CARDIO: regular rate and rhy thm, normal S1 and S2, nor murmur, rub, or gallop PULSES: normal capillary ref ill ABDOMEN: soft, non-distended, non-tender, no masses RECTAL: MUSCULOSKELETAL: no deformity or scol iosis noted, normal range of motion, joints normal, no erythema, edema, effusion, or ecchymosis EXTREMITY: no clubbing, cyanosi s, edema, or deformity with normal ROM in both upper and lower bilateral extremities NEUROLOGIC: grossly normal SKIN: no rashes, ulceratio ns, or suspicious lesions LYMPH NODES: no cervical adenopat hy, nodes normal MENTAL STATUS: alert and oriented x 3, normal mood and affect
--- OUTSIDE RECORDS SUMMARY | 2024-05-24 09:12 | XMS_ITS ---
Author Organization [facility] in [place] Address [address] [place] [address] Care Team Providers Care Production Team Leader Name Role Phone Juice Cheng Primary Care Provider REASON FOR VISIT BP CHECK Medications Medication SIG (Take, Route, Frequency, Duration) Notes Start Date End Date Status Triamcinolone Acetonide 0.1 % 1 application Externally twice daily for 30 days 05/24/2024 Active Encounters Encounter Location Date Provider Diagnosis [facility] [address] [place] [address] 05/24/2024 Juice Cheng Plan Of Treatment Medication Medication Name Sig Start Date Stop Date Notes Triamcinolone Acetonide 0.1 % 1 applicat ion Externally twice daily for 30 days 05/24/2024 Progress Notes * Deanna PERDUE SDOB:1955 (68 yo F)Acc No.[id number]:05/24/2024 Patient: Rossi Deanna MCCAULEY Damian :1955 A ge:68 Y S ex:Female Address:[address] [place] [id number] * Refills Start Triamcinolone Acetonide Cream, 0.1 %, Externally, 60 Gram, 1 application, twice daily, 30 days, Refills=0 * true * Date: Generated for Printi ng/Faxing/eTransmitting on: 0 02/20/2025 01:52 PM EDT
--- OUTSIDE RECORDS SUMMARY | 2025-01-08 09:00 | XMS_ITS ---
Author Organization The [facility] in [place] Address [address] [place] [address] Care Team Providers Care Shop Foreman Name Role Phone Juice Cheng Primary Care Provider [phone] Allergies No Known Allergies REASON FOR [...] Notes Problem Derangement of right knee (disorder) (35230633934906 109) Other internal derangements of right knee (M23.8X1) Active confirmed Vital Signs Blood pressure systolic 152 mm Hg 01/09/20 25 Blood pressure diastolic 78 mm Hg 025 Height 70.5 in 01/08/2025 Weight 194.0 lbs 01/08/2025 BMI 27.44 kg/m2 01/08/2025 Encounters Encounter Location Date Provider Diagnosis [facility] [address] [place] [address] 01/08/2025 Juice Cheng Hypertension I10 ; Abnormal [...] * Deanna PERDUE SDOB:1955 (69 yo F)Acc No.[id number]:01/08/2025 Progress Note Patient: Rossi Deanna MCCAULEY Damian Provider: Belinda Cheng ([facility])MD :1955 A ge:69 Y S ex:Female Date:01/08/2025 [address], [id number] Check In:01:00 PM ESTCheck O ut:01:26 PM [...] Procedure Codes: * Preventive Medicine: Screenings/Counseling: B TN ACTION PLAN Above Normal BMI Follow-up D ietary management education, guidance, and counseling * * Sign off status: Completed Visit Status: C HK (Check Out) true * Provider: Belinda Cheng ([facility])MD Date: 0 01/08/2025 Generated for Kayla rutherford/Rob/eTransmitting on: 0 02/20/2025 01:53 PM EDT History and Physical Notes * HPI (History of Present Illness) Category Sub-Category Detail Notes Category Not es General Hyertesnio - on meds - no t having issues 130's /70/s at home low mag - takign supplemnts anxiety - very minimal wiht the hydoxyzine sparingly arthralgias deng riwht meds
--- OUTSIDE RECORDS SUMMARY | 2025-02-20 13:53 | XMS_ITS | Patient Health Record ---
Author Organization [facility] Address [address] [place] [address] Care Team Providers Care Reinforcing Rod Layer Name Role Phone Shaggy Cheng Primary Care Provider John Hickman Unavailable [phone] Allergies No Known Allergies Reason For Referral No Information Social History Tobacco Use: Social History Observation Description Date Details (start date - stop date) Never Smoker NA - NA Smoking History Question Answer Notes Smoking Status NonSmoker Problems Problem Type SNOMED Code ICD Code Onset Dates Problem Status W/U Status Risk Notes Problem [id number] Other closed fracture of distal end of right radius, initial encounter (S52.591A) Active confirmed Plan Of Treatment Pending Test Test Name Order Date Work Slip with Restrictions: 05/24/2023 SCC- WRIST 3 VIEW RIGHT 16600 05/24/2023 Insurance Providers Payer Name Payer Address Payer Phone Subscriber Number Group Number Insured Name Patient Relationship to Insured Coverage Start Date Coverage End Date Medicare Medical [facility] [address] [address] [place] [phone] [id number] ISRRAEL CLAIRE Self - patient is the insured Medical (General) History Medical History History ICD Code Anxiety: Yes Hepatitis: Yes Surgical History Surgery Date(Month/Year) Hysterectomy 1997
--- OUTSIDE RECORDS SUMMARY | 2025-02-20 13:53 | XMS_ITS | Clinical Summary ---
Author Organization [facility] Address [address] [place] [address], [address] [place] [address] Care Team Providers Care Operational Risk Consultant Name Role Phone Unavailable Primary Care Provider Unavailabl e Social History Tobacco Use Types Packs/Day Years Used Date Smoking Tobacco: Never Assessed Comments Unknown Sex and Gender Information Value Date Recorded Sex Assigned at Not on file Legal Sex Female 5:32 PM EDT Gender Identity Not on file Sexual Orientation Not on file Plan of Treatment Not on file
--- NOTE | 2025-02-20 13:57 | MM_ITS ---
Patient Name: ISRRAEL LAZCANO MR#: [id number] : 1955 Exam Date: 02/20/2025 Ordering Doctor: DR RICKIE REYNOLDS . RADIOLOGY REPORT PROCEDURE: MM TOMOSYNTHESIS SCREENING BI COMPARISON: MM TOMOSYNTHESIS SCREENING BI, 02/13/2024. MM TOMOSYNTHESIS SCREENING BI, 01/10/2023. MG MAMM SCREEN 3D [place] CAD, 11/24/2021. MG MAMM BERNA[place]TE SCRN W CAD DIG, 12/04/2013. INDICATIONS: screening Calculator Name NCI Breast Cancer Risk Assessment Tool 5 Year Breast Cancer Risk 5.10% Lifetime Breast Cancer Risk 14.20% Personal Breast Cancer No Personal Ovarian Cancer No Treatments None Family Cancers Mother with breast cancer at age 80; Sister with leioma, brain cancer at age 33. LOCATION: [facility] BREAST COMPOSITION: There are scattered areas of fibroglandular density. FINDINGS: RIGHT BREAST: No significant suspicious finding. Benign-appearing calcifications are present. Benign-appearing lymph nodes are noted along the chest wall. LEFT BREAST: No significant suspicious finding. Benign-appearing calcifications are present. Benign-appearing lymph nodes are noted along the chest wall. DIAGNOSTIC CATEGORY 2--BENIGN FINDING. NO CHANGE FROM COMPARISON. RECOMMENDATIONS: ROUTINE MAMMOGRAM AND CLINICAL EVALUATION IN 12 MONTHS. Dictated by: Gentry Lorenzo MD on 02/20/2025 at 14:44 Approved by: Gentry Lorenzo MD on 02/20/2025 at 14:52
== END 2025-02-20 13:52 | disposition home or self-care (01) ==
LOC: MAMMO 13:51
PROVIDERS: PCP Family Medicine; Visit Provider Family Medicine
DX: Z12.31 Encounter for screening mammogram for malignant neoplasm of breast (principal); Z80.3 Family history of malignant neoplasm of breast; Z80.8 Family history of malignant neoplasm of other organs or systems
CPT/HCPCS: 77063; 77067

== ENCOUNTER 2025-02-22 07:25 | Outpatient (OUT) | payer MEDICARE, SELFPAY ==
--- OUTSIDE RECORDS SUMMARY | 2024-05-24 09:12 | XMS_ITS ---
Author Organization [facility] in [place] Address [address] [place] [address] Care Team Providers Care Office Chair Assembler Name Role Phone Juice Cheng Primary Care Provider [phone] REASON FOR VISIT BP CHECK Medications Medication SIG (Take, Route, Frequency, Duration) Notes Start Date End Date Status Triamcinolone Acetonide 0.1 % 1 application Externally twice daily for 30 days 05/24/2024 Active Encounters Encounter Location Date Provider Diagnosis [facility] [address] [place] [address] 05/24/2024 Juice Cheng Plan Of Treatment Medication Medication Name Sig Start Date Stop Date Notes Triamcinolone Acetonide 0.1 % 1 applicat ion Externally twice daily for 30 days 05/24/2024 Progress Notes * Deanna PERDUE SDOB:1955 (68 yo F)Acc No.[id number]:05/24/2024 Patient: Rossi Deanna MCCAULEY Damian :1955 A ge:68 Y S ex:Female Address:[address] [place] [address] * Refills Start Triamcinolone Acetonide Cream, 0.1 %, Externally, 60 Gram, 1 application, twice daily, 30 days, Refills=0 * true * Date: Generated for Printi ng/Faxing/eTransmitting on: 0 02/22/2025 07:27 AM EDT
--- OUTSIDE RECORDS SUMMARY | 2025-01-08 09:00 | XMS_ITS ---
Author Organization [facility] in [place] Address [address] [place] [address] Care Team Providers Care Ancient Art Curator Name Role Phone Juice Cheng Primary Care Provider Allergies No Known Allergies REASON FOR VISIT yearly wellness exam Medications Medication SIG (Take, Route, Frequency, Duration) Notes Start Date End Date Status Triamcinolone Acetonide 0.1 % 1 application Externally twice daily for 30 days 05/24/2024 Active Vitamin D (Cholecalciferol) 50 MCG (1999 UT) 1 capsule Orally Once a day Active amLODIPine Besylate 5 MG 1 tablet Orally Once a day for 90 days 05/08/2024 Active Ibuprofen 800 MG 1 tablet with food o r milk as needed Orally every 8 hrs for 30 days PRN Active Calcium 600 MG 2 tablets Orally Twi ce a day 12/28/2023 Active hydrOXYzine HCl 25 MG 1 tablet Orally qid As needed Active Magnesium 250 MG 2 tablet with a meal Orally Once a day 12/28/2023 Active Social History Tobacco Use: Social History [...] ast year? No Points 0 Interpretation Negative Problems Problem Type SNOMED Code ICD Code Onset Dates Problem Status W/U Status Risk Notes Problem Derangement of right knee (disorder) (04706091804701 109) Other internal derangements of right knee (M23.8X1) Active confirmed Vital Signs Weight 194.0 lbs 01/08/2025 Height 70.5 in 01/08/2025 Blood pressure systolic 152 mm Hg 01/09/20 25 Blood pressure diastolic 78 mm Hg 025 BMI 27.44 kg/m2 01/08/2025 Encounters Encounter Location Date Provider Diagnosis [facility] [address] [place] [address] 01/08/2025 Juice Cheng Hypertension I10 ; Abnormal heart rhythm I49.9 ; Osteoarthritis M19.90 and Other internal derangements of right knee M23.8X1 Assessments Encounter Date Diagnosis (ICD Code) Assessment Notes Treatment Notes Treatment Clinical Notes Section Notes 01/08/2025 Hypertension (ICD-10 - I10) 01/08/2025 Abnormal heart rhythm (ICD-10 - I49.9) 01/08/2025 Osteoarthritis (ICD-10 - M19.90) 01/08/2025 Other internal derangements of right knee (ICD-10 - M23.8X1) Plan Of Treatment Medication Medication Name Sig Start Date Stop Date Notes amLODIPine Besylate 5 MG 1 tablet Orally Once a day for 90 days 05/08/2024 Ibuprofen 800 MG 1 tablet with food o r milk as needed Orally every 8 hrs for 30 days PRN hydrOXYzine HCl 25 MG 1 tablet Orally qid Pending Test Test Name Order Date HEMOGLOBIN A1C (GLYCO) 01/08/2025 IRON, TOTAL 01/08/2025 LIPID PANEL (CHOL/TRIG/HDL/LDL) 01/09/20 25 VITAMIN D, 25 LEVEL (TOTAL) 01/08/2025 MAGNESIUM 01/08/2025 VIT B12 AND FOLATE 01/08/2025 THYROID PANEL (T4/TSH/FREE T3) 5 MM screening mammo BI 01/08/2025 CMP (COMP MET REYNAGA) w/eGFR CKD-EPI 2024 CBC WITH DIFF 01/08/2025 Progress Notes * Deanna PERDUE SDOB:1955 (69 yo F)Acc No.[id number]:01/08/2025 Progress Note Patient: Rossi Deanna MCCAULEY Damian Provider: Belinda Cheng ([facility])MD :1955 A ge:69 Y S ex:Female Date:01/08/2025 [address] [id number] Check In:01:00 PM ESTCheck O ut:01:26 PM EST Subjective: * Chief Complaints: * Y early wellness exam * HPI: G eneral: Hyertesnio - on meds - no t having issues 130's /70/s at home low mag - takign supplemnts anxiety - very minimal wiht the hydoxyzine sparingly arthralgias deng riwht meds. 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 Modified On:11/29/2022 Status:confirmed M23.8X2 Other internal deran gements of left knee Modified On:11/29/2022 Status:confirmed I10 Hypertension Modified On:11/30/2022U Status:confirmed B19.20 Hepatitis C Modified On:11/29/2022U Status:confirmed M85.80 Osteopenia Modified On:11/29/2022U Status:confirmed J20.9 Acute bronchitis Modified On:11/29/2022U Status:confirmed Z00.00 Well adult Modified On:11/30/2022U Status:confirmed K52.9 Acute gastroenteriti s Modified On:11/29/2022U Status:confirmed M23.91 Internal derangement of knee, right Modified On:11/30/2022U Status:confirmed U07.1 COVID-19 virus infec tion Modified On:11/29/2022U Status:confirmed S52.591A Other fractures of l ower end of right radius, initial encounter for closed fracture Modified On:03/07/2023U Status:confirmed I49.9 Abnormal heart rhyth m Modified On:12/28/2023U Status:confirmed M23.8X1 Other internal deran gements of right knee Modified On:01/08/2025 Status:confirmed * Medical History: * Surgical History: h ysterectomy 10/1997Internal Fixation of Right Radial Fracture 03/13/2023 * Hospitalization/Major Diagno stic Procedure: D enies Past Hospitalization * Family History: F ather: 78 yrs, diagnosed with Unspecified heart disease. M other: 80 yrs, diagnosed with Other malignant neoplasm of unspecified site. S ister(s): 34 yrs, diagnosed with Other malignant neoplasm of unspecified site. S on(s): alive. D aughter(s): alive. 1 son(s) , 1 daughter(s) - [...] I nterpretation N egative * Medications: T akingamLODIPine Besylate 5 MG Tablet 1 tablet Orally Once a day Calcium 600 MG Tablet 2 tablets Orally Twice a day hydrOXYzine HCl 25 MG Tablet 1 tablet Orally qid As neededIbuprofen 800 MG Tablet 1 tablet with food or milk as needed Orally every 8 hrs , Notes to Pharmacist: PRNMagnesium 250 MG Tablet 2 tablet with a meal Orally Once a day Triamcinolone Acetonide 0.1 % Cream 1 application Externally twice daily Vitamin D (Cholecalciferol) 50 MCG (1999 UT) Capsule 1 capsule Orally Once a day Medication List reviewed and reconciled with the patientTaking amLODIPine Besylate 5 MG Tablet 1 tablet Orally Once a day Taking Calcium 600 MG Tablet 2 tablets Orally Twice a day Taking hydrOXYzine HCl 25 MG Tablet 1 tablet Orally qid As neededTaking Ibuprofen 800 MG Tablet 1 tablet with food or milk as needed Orally every 8 hrs , Notes to Pharmacist: PRNTaking Magnesium 250 MG Tablet 2 tablet with a meal Orally Once a day Taking Triamcinolone Acetonide 0.1 % Cream 1 application Externally twice daily Taking Vitamin D (Cholecalciferol) 50 MCG (1999 UT) Capsule 1 capsule Orally Once a day Medication List reviewed and reconciled with the patient * Allergies: N .K.D.A.no[Allergies Verified] Objective: * Vitals: W t:194.0lbs, Ht: 70.5 in, BP:152/78mm Hg, BMI:27.44Index, Ht-cm: 179.07 cm, Wt- k kg. Assessment: * Assessment: 1. H ypertension - I10 (Primary) 2 . A bnormal heart rhythm - I49.9 ? 3 . O steoarthritis - M19.90 4 . O ther internal derangements of right knee - M23.8X1 Plan: * Treatment: 2. A bnormal heart rhythm L AB: HEMOGLOBIN A1C (GLYCO) L AB: IRON, TOTAL L AB: LIPID PANEL (CHOL/TRIG/HDL/LDL) L AB: VITAMIN D, 25 LEVEL (TOTAL) L AB: THYROID PANEL (T4/TSH/FREE T3) L AB: CMP (COMP MET REYNAGA) w/eGFR CKD-EPI L AB: CBC WITH DIFF * Procedure Codes: * Preventive Medicine: Screenings/Counseling: B CA ACTION PLAN Above Normal BMI Follow-up D ietary management education, guidance, and counseling * * Sign off status: Completed Visit Status: C HK (Check Out) true * Provider: Belinda Cheng ([facility])MD Date: 0 01/08/2025 Generated for Kayla rutherford/Rob/eTransmitting on: 0 02/22/2025 07:27 AM EDT History and Physical Notes * HPI (History of Present Illness) Category Sub-Category Detail Notes Category Not es General Hyertesnio - on meds - no t having issues 130's /70/s at home low mag - takign supplemnts anxiety - very minimal wiht the hydoxyzine sparingly arthralgias deng riwht meds
--- OUTSIDE RECORDS SUMMARY | 2025-02-20 12:20 | XMS_ITS ---
Author Organization The [facility] in [place] Address [address] [place] [address] Care Team Providers Care Drop Forge Hand Name Role Phone Juice Cheng Primary Care Provider [phone] REASON FOR VISIT review mammogram Encounters Encounter Location Date Provider Diagnosis [facility] [address] [place] [address] 02/20/2025 Juice Cheng Plan Of Treatment No Information Progress Notes * Deanna PERDUE SDOB:1955 (69 yo F)Acc No.[id number]:02/20/2025 Patient: Rossi Deanna MCCAULEY :1955 A ge:69 Y S ex:Female Address:[address] [place] [address] * true * Date: Generated for Samii sangeeta/Kamerong/eTransmitting on: 0 02/22/2025 07:27 AM EDT
--- OUTSIDE RECORDS SUMMARY | 2025-02-22 07:27 | XMS_ITS | Patient Health Record ---
Author Organization [facility] Address [address] [place] [address] Care Team Providers Care Senior Oracle Database Developer Name Role Phone Shaggy Cheng Primary Care Provider John Hickman Unavailable [phone] Allergies No Known Allergies Reason For Referral No Information Social History Tobacco Use: Social History Observation Description Date Details (start date - stop date) Never Smoker NA - NA Smoking History Question Answer Notes Smoking Status NonSmoker Problems Problem Type SNOMED Code ICD Code Onset Dates Problem Status W/U Status Risk Notes Problem [id number] Other closed fracture of distal end of right radius, initial encounter (S52.591A) Active confirmed Plan Of Treatment Pending Test Test Name Order Date Work Slip with Restrictions: 05/24/2023 SCC- WRIST 3 VIEW RIGHT [address]05 05/24/2023 Insurance Providers Payer Name Payer Address Payer Phone Subscriber Number Group Number Insured Name Patient Relationship to Insured Coverage Start Date Coverage End Date Medicare Medical [facility] [address] [address] [place] [phone] [id number] ISRRAEL CLAIRE Self - patient is the insured Medical (General) History Medical History History ICD Code Anxiety: Yes Hepatitis: Yes Surgical History Surgery Date(Month/Year) Hysterectomy 1997
--- OUTSIDE RECORDS SUMMARY | 2025-02-22 07:28 | XMS_ITS | Clinical Summary ---
Author Organization [facility] Address [address] [place] [address], [address] [place] [address] Care Team Providers Care Tangled Yarn Worker Name Role Phone Unavailable Primary Care Provider [...]
--- OUTSIDE RECORDS SUMMARY | 2025-02-22 07:28 | XMS_ITS | CCD ---
Author Organization [facility] Care Team Providers Care Forensic Chemist Name Role Phone ED LIUJassonROGER Jacqueline Referring [...] spec) Not detected Normal NOT DETECTED [facility] Comment on above: Result Comment: This test is not yet approved or cleared by the [place] FDA. When there are no FDA-approved or cleared tests available, and other criteria are met, FDA can make tests available under an emergency access mechanism called an Emergency Use Authorization (EUA). The EUA for this test is supported by the [employer] Operator of Health and Human Service's (HHS's) declaration [...] SARS-CoV-2. Performed By: #### C VDTB #### [facility] [address] [place] [address] Dr. Perico Victor INFLUENZA A AND B [facility] 06-23 [facility] SEE BELOW Normal [facility] Comment on above: Result Comment: Nega tive for Flu A protein angiten. Infection due to Flu A cannot be ruled out. Flu A angiten in the sample may be below the detection limit of the test. Performed By: #### I NFLUAB #### [facility] [address] [place] [address] Dr. Perico Victor [facility] SEE BELOW Normal [facility] Comment on above: Result Comment: Nega tive for Flu B protein antigen. Infection due to Flu B cannot be ruled out. Flu B antigen in the sample may be below the detection limit of the test. Performed By: #### I NFLUAB #### [facility] [address] [place] [address] Dr. Perico Victor INFLUENZA A AG Negative Normal NEGATIVE SEE COMMENT [facility] Comment on above: Performed By: #### I NFLUAB #### [facility] [address] [place] [address] Dr. Perico Victor INFLUENZA B AG Negative Normal NEGATIVE SEE COMMENT [facility] Comment on above: Performed By: #### I NFLUAB #### [facility] [address] [place] [address] Dr. Perico Victor INTERNAL CONTROLS Within Normal Limits Normal Wi thin Normal Limits [facility] Comment on above: Performed By: #### I NFLUAB #### [facility] [address] [place] [address] Dr. Perico Victor Covid-19 PCR (CVDTB)on 03-04 SARS-CoV-2 (COVID-19) RNA ROSALINA+probe Ql (Unsp spec) Detected Critically abnormal NOT DETECTED [facility] Comment on above: Result Comment: This test is not yet approved or cleared by the [place] FDA. When there are no FDA-approved or cleared tests available, and other criteria are met, FDA can make tests available under an emergency access mechanism called an Emergency Use Authorization (EUA). The EUA for this test is supported by the Back [employer] Operator of Health and Human Service's (HHS's) declaration [...] used). Performed By: #### C VDTB #### [facility] [address] [address] [address] Perico Victor Covid-19 PCR (CVDTB)on 02-02 SARS-CoV-2 (COVID-19) RNA ROSALINA+probe Ql (Unsp spec) Not detected Normal NOT DETECTED [facility] Comment on above: Result Comment: This test is not yet approved or cleared by the [place] FDA. When there are no FDA-approved or cleared tests available, and other criteria are met, FDA can make tests available under an emergency access mechanism called an Emergency Use Authorization (EUA). The EUA for this test is supported by the [employer] Operator of Health and Human Service's (HHS's) declaration [...] SARS-CoV-2. Performed By: #### C VDTBH #### [facility] [address] [place] [address] Dr. Perico Victor T4 [facility] 11-26-2021 T4 [Mass/Vol] 9.2 ug/dL Normal 4.5-12.0 [facility] Comment on above: Performed By: #### T 4LC #### [facility] [address] [place] [address] Dr. Perico Victor INSULINon 11-25-2021 Insulin 14.4 uIU/mL Normal 2.6-24.9 [facility] Comment on above: Performed By: #### I NSULIN #### [facility] [address] [place] [address] Dr. Perico Victor CBC AUTO DIFFon 11-24-2021 BASO # 0.1 103/ul Normal 0.0-0.1 [facility] Comment on above: Performed By: #### C BC #### [facility] [address] [place] [address] Dr. Perico Victor Basophils/100 WBC (Bld) 1.2 % Normal 0.2-2.0 [facility] Comment on above: Performed By: #### C BC #### [facility] [address] [place] [address] Dr. Perico Victor EO # 0.5 103/ul Normal 0.0-0.7 [facility] Comment on above: Performed By: #### C BC #### [facility] [address] [place] [address] Dr. Perico Victor Eosinophils/100 WBC (Bld) 5.8 % Normal 0.9-7.0 [facility] Comment on above: Performed By: #### C BC #### [facility] [address] [place] [address] Dr. Perico Victor Erythrocyte distribution width (RBC) [Ratio] 12.3 % Normal 11.0-15.0 [facility] Comment on above: Performed By: #### C BC #### [facility] [address] [place] [address] Dr. Perico Victor Hematocrit (Bld) [Volume fraction] 41.7 % Normal 36.0-48.0 [facility] Comment on above: Performed By: #### C BC #### [facility] [address] [place] [address] Dr. Perico Victor Hemoglobin (Bld) [Mass/Vol] 13.6 g/dL Normal 12.0-16.0 [facility] Comment on above: Performed By: #### C BC #### [facility] [address] [place] [address] Dr. Perico Victor IG # 0.03 10e3/ul Normal 0.00-0.03 [facility] Comment on above: Performed By: #### C BC #### [facility] [address] [place] [address] Dr. Perico Victor IG % 0.3 % Normal 0.0-0.5 [facility] Comment on above: Performed By: #### C BC #### [facility] [address] [place] [address] Dr. Perico Victor LYMPH # 2.8 103/ul Normal 1.2-3.8 [facility] Comment on above: Performed By: #### C BC #### [facility] [address] [place] [address] Dr. Perico Victor Lymphocytes/100 WBC (Bld) 30.5 % Normal 20.5-60.0 [facility] Comment on above: Performed By: #### C BC #### [facility] [address] [place] [address] Dr. Perico Victor MANUAL DIFF REQ NO Normal [facility] Comment on above: Performed By: #### C BC #### [facility] [address] [place] [address] Dr. Perico Victor MCH (RBC) [Entitic mass] 30.6 pg Normal 26.7-34.0 [facility] Comment on above: Performed By: #### C BC #### [facility] [address] [place] [address] Dr. Perico Victor MCHC (RBC) [Mass/Vol] 32.6 g/dL Normal 29.9-35.2 [facility] Comment on above: Performed By: #### C BC #### [facility] [address] [place] [address] Dr. Perico Victor MCV (RBC) [Entitic vol] 93.7 fL Normal 81.0-99.0 [facility] Comment on above: Performed By: #### C BC #### [facility] [address] [place] [address] Dr. Perico Victor MONO # 0.6 103/ul Normal 0.3-0.8 [facility] Comment on above: Performed By: #### C BC #### [facility] [address] [place] [address] Dr. Perico Victor Monocytes/100 WBC (Bld) 6.6 % Normal 1.7-12.0 [facility] Comment on above: Performed By: #### C BC #### [facility] [address] [place] [address] Dr. Perico Victor NEUT # 5.0 103/ul Normal 1.4-6.5 [facility] Comment on above: Performed By: #### C BC #### [facility] [address] [place] [address] Dr. Perico Victor Neutrophils/100 WBC (Bld) 55.6 % Normal 43.0-75.0 [facility] Comment on above: Performed By: #### C BC #### [facility] [address] [place] [address] Dr. Perico Victor Platelet mean volume (Bld) [Entitic vol] 11.2 fL Normal 9.5-13.5 [facility] Comment on above: Performed By: #### C BC #### [facility] [address] [place] [address] Dr. Perico Victor PLT 324 103/ul Normal 150-450 [facility] Comment on above: Performed By: #### C BC #### [facility] [address] [place] [address] Dr. Perico Victor RBC 4.45 106/ul Normal 4.20-5.40 [facility] Comment on above: Performed By: #### C BC #### [facility] [address] [place] [address] Dr. Perico Victor WBC 9.0 103/ul Normal 4.0-11.0 [facility] Comment on above: Performed By: #### C BC #### [facility] [address] [place] [address] Dr. Perico Victor FREE THYROXINE INDEX T7on FTI 2.94 Normal 1.30-4.50 [facility] Comment on above: Performed By: #### A 1C #### [facility] [address] [place] [address] Dr. Perico Victor T3U 32.0 % Normal 30.0-39.0 [facility] Comment on above: Performed By: #### A 1C #### [facility] [address] [place] [address] Dr. Perico Victor T4 [Mass/Vol] 9.20 ug/dL Normal 4.80-13.90 [facility] Comment on above: Performed By: #### A 1C #### [facility] [address] [place] [address] Dr. Perico Victor GLYCOHEMOGLOBIN A1Con 2021 ADA RECOMMENDATION SEE BELOW Normal [facility] Comment on above: Result Comment: ADA RECOMMENDED LIMIT 4.0 - 6.0 ADA THERAPEUTIC TARGET < 7.0 ACTION SUGGESTED > 7.0 Performed By: #### A 1C #### [facility] [address] [place] [address] Dr. Perico Victor Glucose [Mass/Vol] 114 mg/dL Normal [facility] Comment on above: Performed By: #### A 1C #### [facility] [address] [place] [address] Dr. Perico Victor HbA1c (Bld) [Mass fraction] 5.6 % Normal 4.5-6.2 [facility] Comment on above: Performed By: #### A 1C #### [facility] [address] [place] [address] Dr. Perico Victor IRONon 11-24-2021 Iron [Mass/Vol] 75.0 ug/dL Normal 50.0-170.0 [facility] Comment on above: Performed By: #### I SULEIMAN #### [facility] [address] [address] [address] Perico Victor LIPID PROFILEon 11-24-2021 CHOL-HDL RATIO NORM SEE BELOW Normal [facility] Comment on above: Result Comment: 3.3 - 4.4 LOW RISK 4.4 - 7.1 AVERAGE RISK 7.1 - 11.0 MODERATE RISK >11.0 HIGH RISK Performed By: #### A 1C #### [facility] [address] [address] [address] Perico Victor Cholesterol [Mass/Vol] 171 mg/dL Normal <=200 [facility] Comment on above: Performed By: #### A 1C #### [facility] [address] [address] [address] Perico Victor Cholesterol in HDL [Mass/Vol] 68 mg/dL Critically high 40-60 [facility] Comment on above: Performed By: #### A 1C #### [facility] [address] [address] [address] Perico Victor Cholesterol in LDL [Mass/Vol] 89.6 mg/dL Normal [facility] Comment on above: Performed By: #### A 1C #### [facility] [address] [address] [address] Perico Victor Cholesterol.total/Ch olesterol in HDL [Mass ratio] 2.5 {ratio} Normal [facility] Comment on above: Performed By: #### A 1C #### [facility] [address] [address] [address] Perico Victor HDL NORMAL > or = 60 mg/dl - LOW CARDIOVASCULAR RISK <40 mg/dl - HIGH CARDIOVASCULAR RISK Normal [facility] Comment on above: Performed By: #### A 1C #### [facility] [address] [address] [address] Perico Victor LDL CALC NORMAL SEE BELOW Normal [facility] Comment on above: Result Comment: <100 mg/dl OPTIMAL 100 - 129 mg/dl NEAR OR ABOVE OPTIMAL 130 - 159 mg/dl BORDERLINE HIGH 160 - 189 mg/dl HIGH >190 mg/dl VERY HIGH Performed By: #### A 1C #### [facility] [address] [place] [address] Dr. Perico Victor Triglyceride [Mass/Vol] 67 mg/dL Normal <=150 [facility] Comment on above: Performed By: #### A 1C #### [facility] [address] [address] [address] Perico Victor VLDL CALC 13.4 mg/dL Normal [facility] Comment on above: Performed By: #### A 1C #### [facility] [address] [place] [address] Dr. Perico Victor MG MAMM SCREEN 3D BERNADETTE CADon 11-24-2021 MG MAMM SCREEN 3D BERNADETTE CAD Patient: ISRRAEL LAZCANO Exam Date: 11/24/2021 : 1955 Gender:F Ordering : DR RICKIE REYNOLDS . Admission #: [id number] Family : Order #: [id number] CLICK HERE TO VIEW EXAM RADIOLOGY REPORT [...] brain cancer at age 32. LOCATION: [facility] BREAST COMPOSITION: Scattered areas fibroglandular density. FINDINGS: [...] Thomason MD on 11/24/2021 at 09:15 Normal [facility] OCC BLD IMMUNO SCREENon 11-01 OCCULT BLOOD Negative Normal NEGATIVE [facility] Comment on above: Performed By: #### O BSCRN #### [facility] [address] [place] [address] Dr. Perico Victor PROF 14(COMP METB)on 022 Albumin [Mass/Vol] 4.2 g/dL Normal 3.4-5.0 [facility] Comment on above: Performed By: #### A 1C #### [facility] [address] [place] [address] Dr. Perico Victor Albumin/Globulin [Mass ratio] 1.1 {ratio} Normal [facility] Comment on above: Performed By: #### A 1C #### [facility] [address] [place] [address] Dr. Perico Victor ALP [Catalytic activity/Vol] 65 U/L Normal 46-116 [facility] Comment on above: Performed By: #### A 1C #### [facility] [address] [place] [address] Dr. Perico Victor ALT [Catalytic activity/Vol] 30 U/L Normal 14-59 [facility] Comment on above: Performed By: #### A 1C #### [facility] [address] [place] [address] Dr. Perico Victor Anion gap [Moles/Vol] 12.2 mmol/L Normal [facility] Comment on above: Performed By: #### A 1C #### [facility] [address] [place] [address] Dr. Perico Victor AST [Catalytic activity/Vol] 17 U/L Normal 15-37 [facility] Comment on above: Performed By: #### A 1C #### [facility] [address] [place] [address] Dr. Perico Victor Bilirubin [Mass/Vol] 0.6 mg/dL Normal 0.2-1.0 [facility] Comment on above: Performed By: #### A 1C #### [facility] [address] [place] [address] Dr. Perico Victor Calcium [Mass/Vol] 10.1 mg/dL Normal 8.5-10.1 [facility] Comment on above: Performed By: #### A 1C #### [facility] [address] [place] [address] Dr. Perico Victor Chloride [Moles/Vol] 104 mmol/L Normal 98-107 [facility] Comment on above: Performed By: #### A 1C #### [facility] [address] [address] [address] Perico Victor CO2 [Moles/Vol] 27.1 mmol/L Normal 21.0-32.0 [facility] Comment on above: Performed By: #### A 1C #### [facility] [address] [place] [address] Dr. Perico Victor Creatinine [Mass/Vol] 0.85 mg/dL Normal 0.55-1.02 [facility] Comment on above: Performed By: #### A 1C #### [facility] [address] [place] [address] Dr. Perico Victor EGFR-AF ALGERIAN >60 Normal >=60 [facility] Comment on above: Performed By: #### A 1C #### [facility] [address] [place] [address] Dr. Perico Victor EGFR-NON AF ALGERIAN >60 Normal >=60 [facility] Comment on above: Performed By: #### A 1C #### [facility] [address] [place] [address] Dr. Perico Victor Globulin (S) [Mass/Vol] 3.7 g/dL Normal [facility] Comment on above: Performed By: #### A 1C #### [facility] [address] [place] [address] Dr. Perico Victor Glucose [Mass/Vol] 110 mg/dL Critically high 74-106 [facility] Comment on above: Performed By: #### A 1C #### [facility] [address] [place] [address] Dr. Perico Victor Potassium [Moles/Vol] 4.3 mmol/L Normal 3.5-5.1 [facility] Comment on above: Performed By: #### A 1C #### [facility] [address] [place] [address] Dr. Perico Victor Protein [Mass/Vol] 7.9 g/dL Normal 6.4-8.2 [facility] Comment on above: Performed By: #### A 1C #### [facility] [address] [place] [address] Dr. Perico Victor Sodium [Moles/Vol] 139 mmol/L Normal 136-145 [facility] Comment on above: Performed By: #### A 1C #### [facility] [address] [place] [address] Dr. Perico Victor Urea nitrogen [Mass/Vol] 23.0 mg/dL Critically high 7.0-18.0 [facility] Comment on above: Performed By: #### A 1C #### [facility] [address] [place] [address] Dr. Perico Victor Urea nitrogen/Creatinine [Mass ratio] 27.1 mg/mg Normal [facility] Comment on above: Performed By: #### A 1C #### [facility] [address] [place] [address] Dr. Perico Victor TSHon 11-24-2021 TSH 2.646 uIU/mL Normal 0.358-3.740 [facility] Comment on above: Performed By: #### A 1C #### [facility] [address] [place] [address] Dr. Perico Victor TSH RANGE SEE BELOW Normal [facility] Comment on above: Result Comment: <0.3 4 UIU/ml HYPERTHYROID 0.34-5.60 UIU/ml EUTHYROID >5.60 UIU/ml HYPOTHYROID Performed By: #### A 1C #### [facility] [address] [place] [address] Dr. Perico Victor [facility] SARS-CoV-2 (COVID-19) RNA ROSALINA+probe Ql (Unsp spec) Not detected Normal NOT DETECTED [facility] Comment on above: Result Comment: When [...] for this test is supported by the [place] of Health and Human Service's declaration that [...] used). Performed By: #### A 1C #### [facility] [address] [place] [address] Dr. Perico Victor [id number] 01-16-2020 SARS-CoV-2 Not Detected Normal Not Detected [facility] Comment on above: Result Comment: (NOT E) Testing was performed using the Aptima SARS-CoV-2 assay. This test was developed and its performance characteristics determined by [employer]. This test has not been FDA cleared [...] detected) result in this assay. Performed At: =[address], [place] [id number] Debbi Salgado MD Ph:[phone] Performed By: #### A COV #### [facility] [address] [id number] Label Tacker: Loyd Best MD Encounters Encounter Date Encounter [...] End: 01-10-2020 Patient encounter procedure GLORIA LIU [facility] Start: 01-09-2020 End: 01-09-2020 Subsequent hospital visit by physician [facility] Comment on above: Special screening ex amination for viral disease Procedures Date Procedure Procedure Detail Performing Clinician Start: 01-09-2020 COVID-19 AMBULATORY REYMUNDO LIU Plan of Treatment Date Care Activity Detail Author Start: 03-03-2020 Influenza vaccination Flu vaccine (# 1) [place], [place] End: 01-09-2020 Covid-19 Ambulatory Covid-19 Ambulatory Lab Routine Special screening examination for viral disease 1 Occurrences starting 01/09/2020 until 01/09/2020 [place], [place] Comment on above: 1 Occurrences starti ng 01/09/2020 until 01/09/2020 Covid-19 Ambulatory Covid-19 Amb ulatory Lab Routine Special screening examination for viral disease 01/09/2020 7:34 PM EDT [place], [place] Payers Date Payer Category Payer Medicare [id number] 1955 Unknown [id number] 2.16.84 [id number] 1955 Unknown [id number] 2.16.84 [id number] 1955 Unknown [id number] 2.16.84 [id number] 1955 Unknown [id number] 2.16.84 [id number] 1955 Unknown [id number] 2.16.84 [id number] Social History Date Type Detail Facility Tobacco smoking status NHIS Unknown if ev er [facility] Assigned At Not on file [facility] OR Summary Purpose Family History No Family History Records FoundNo Family History Records Found Advance Directives No Advanced Directives Records FoundDocuments on File Type Date Recorded Patient Systems Technician Expl anation Advance Directives and Living Will Power of [place] Service Captain Assessments Diagnosis Special screening examination for viral disease Special screening examination for unspecified viral disease Additional Source Comments INFORMATION SOURCE (unrecogn ized section and content) DATE CREATED AUTHOR 01/24/2020 [facility] DATE CREATED AUTHOR 'S ORGANIZ ATION 06/30/2022 [facility] FOR RECORDS PERTAINING TO PATIENTS WHO ARE [...] BE BASED ON THE PRIMARY CLINICAL RECORDS. [employer] provides no warranty or guarantee of the accuracy or completeness of information in this document.
[2025-02-22 08:14] LABS: Hematocrit 42.3 % (36.0-48.0); Hemoglobin 14.0 g/dL (12.0-16.0); Immature Granulocytes Abs Auto 0.02 10^3/uL (0.00-0.03); Immature Granulocytes Pct Auto 0.3 % (0.0-0.5); Lymphocytes Absolute Auto 1.9 10^3/uL (1.2-3.8); Mean Corpuscular HGB Conc 33.1 g/dL (29.9-35.2); Mean Corpuscular Hemoglobin 30.6 pg (26.7-34.0); Mean Corpuscular Volume 92.6 fL (81.0-99.0); Platelet Count 331 10^3/uL (150-450); Red Blood Count 4.57 10^6/uL (4.20-5.40); White Blood Count 6.7 10^3/uL (4.0-11.0)
[2025-02-22 08:30] LABS: Iron 90.0 ug/dL (50.0-170.0)
[2025-02-22 08:48] LABS: Alanine Aminotransferase 23 U/L (14-59); Albumin Globulin Ratio 1.1; Albumin Level 3.9 g/dL (3.4-5.0); Alkaline Phosphatase 76 U/L (46-116); Anion Gap 11.7; Aspartate Amino Transferase 20 U/L (15-37); Blood Urea Nitrogen 14.0 mg/dL (7.0-18.0); Calcium 9.7 mg/dL (8.5-10.1); Carbon Dioxide 27.5 mmol/L (21.0-32.0); Chloride 106 mmol/L (98-107); Cholesterol 172 mg/dL (<=200); Estimated GFR (African America >60 (>=60 mL/min/1.73m^2); Estimated GFR (Non-African Ame >60 (>=60 mL/min/1.73m^2); Free T3 2.40 pg/mL (2.18-3.98); Globulin 3.7 g/dL; Glucose 99 mg/dL (74-106); HDL Cholesterol 73 mg/dL (40-60); Magnesium 1.9 mg/dL (1.8-2.4); Potassium 4.2 mmol/L (3.5-5.1); Sodium 141 mmol/L (136-145); Thyroid Stimulating Hormone 2.004 uIU/mL (0.358-3.740); Total Protein 7.6 g/dL (6.4-8.2); Triglycerides 63 mg/dL (<=150); VLDL CHOLESTEROL 12.6 mg/dL
[2025-02-22 09:40] LABS: Folate 12.90 ng/mL (8.60-58.90)
[2025-02-25 16:47] LABS: Vitamin B12 548 pg/mL (232-1245)
== END 2025-02-22 07:26 | disposition home or self-care (01) ==
PROVIDERS: PCP Family Medicine; Visit Provider Family Medicine
DX: I49.9 Cardiac arrhythmia, unspecified (principal); M23.8X2 Other internal derangements of left knee; I10 Essential (primary) hypertension
CPT/HCPCS: 36415; 80053; 80061; 82306; 82607; 82746; 83036; 83540; 83735; 84436; 84443; 84481; 85025